=== PATIENT | female | born 1970 | race Caucasian/White ===

== ENCOUNTER 2022-12-13 09:09 | Outpatient (AMB) | payer OTHER, SELFPAY ==
[2022-12-13 09:14] VITALS: BP 118/74; PULSE 79; RESP 16; TEMP 36.6; O2SAT 97; BMI 35.8
--- NOTE | 2022-12-13 09:14 | A.OFFPC_ITS ---
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 Patient was previously seen at [facility]; [place] [facility]-([facility]). Patient reports she had 2 previous episodes of attempting to eat with dentures and choking. Patient reports needing abdominal thrusts to help her breathe again. She reports she went to be seen shortly after for breathing difficulties and was diagnosed with bronchitis. Patient was given steroids which helped a little. Patient went back as she was not getting better and she was given antibiotics. Patient reports this helped and she has not had a reoccurrence for about 3 weeks now. Patient states although she was diagnosed with bronchitis, no imaging was completed and she believes this was closer aligned with aspiration pneumonia. Ceo & Founder Required: No Accompanied by: Self / Same As Patient Allergies No Known Allergies Allergy (Verified 12/13/22 09:36) Medication List - Last Reconciled 12/13/22 by Rafael Anderson CNP No Known Home Meds Tobacco use date assessed: 12/13/22 Dental Screening Dental Screen Date: 12/13/22 Did you have a dental visit in the last 12 months?: Yes Did you have a dental problem in the last 6 months where you did not have access to dental care?: No Was dental information given to patient?: Patient has dentist (Currently undergoing tooth removal and denture molding.) HPI HPI Comments History of Present Illness Details 52-year-old female presents to establish care She was last evaluated by her former PCP and had blood work done 2 years She reports h/o hypothyroidism recent diagnosis of bronchitis. She notes she was on Synthroid which she stopped taking 2 years ago. She notes her last TSH was normal Not currently on prescription medications. No acute symptoms today. She states she has no tooth. Her teeth were removed due to poor dentition. She is awaiting dental procedure for permanent dental implant. She reports h/o MVP. Was followed by Cardiology and had normal echocardiography. No acute symptoms. She requests a referral to Cardiology. She states she has 1 kidney to the right side. 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 Reports history of 1 PPD cigarette smoking for approximately 20 years; She quit smoking 19 years ago. She notes she has never had a colonoscopy She notes she is not followed by [facility] [employer]. Her last pap smear test was 5 years ago: normal She states her last mammogram was 2 years ago: normal She notes she has not received the shingrix vaccines [facility] Medical History (Updated 12/13/22 @ 10:13 by Rafael Anderson CNP) Alcohol abuse Former cigarette smoker H/O fracture of pelvis MVP (mitral valve prolapse) Thyroid condition Surgical History (Updated 12/13/22 @ 09:59 by Rebecca Gardner) Hx of cholecystectomy Hx of kidney donation Hx of tubal ligation Family History Other Adopted Social History [facility]: [facility] Patient Tobacco Use Status: Former Tobacco user Tobacco use type: Cigarette Years Smoked: 19 years e-Cigarette/Vaping Use: Never Used service: No Current occupational status: employed 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 1. Little interest or pleasure in doing things: not at all 2. Feeling down, depressed, or hopeless: not at all 3. Trouble falling or staying asleep, or sleeping too much: not at all 4. Feeling tired or having little energy: not at all 5. Poor appetite or overeating: more than half the days (overeating) 6. Feeling bad about yourself - or that you are a failure or have let yourself or your family down: not at all 7. Trouble concentrating on things, such as reading the newspaper or watching television: not at all 8. Moving or speaking so slowly that other people could have noticed. Or the opposite - being so fidgety or restless that you have been moving around a lot more than usual: not at all 9. Thoughts that you would be better off or of hurting yourself in some way: not at all Total score: 2 Depression Screening Interpretation: Negative 81081 - PHQ-9 Billing: Yes Source: Developed by Drs. Jax Castro, Abdirahman London and colleagues, with an educational delphine from [employer]. Thrive Questionnaire Date Thrive assessed: 12/13/22 I am a: Patient What is your living situation today?: I have a steady place to live Within the past 12 months, did the food you bought not last and you didn't have the money to get more?: Never true Within the past 12 months, did you worry whether your food would run out before you got money to buy more?: Never true Do you have trouble paying for medicines?: No Do you have trouble getting transportation to medical appointments?: No Do you have trouble paying your heating and electricity bill?: No Do you have trouble taking care of your child, family member or friend?: No Do you have trouble with day-to-day activities such as bathing, preparing meals, shopping, managing finances, etc.?: No Are you currently unemployed and looking for a job?: No Are you interested in more education?: No Currently or been in a relationship where the following occur: no concerns reported AUDIT C Alcohol Use Questionnaire (AUDIT-C) 1. How often do you have a drink containing alcohol?: Never 3. How often do you have six or more drinks on one occasion?: Never Total Score: 0 CARLOS-7 AMB Questionnaire CARLOS-7 Date CARLOS - 7 assessed: 12/13/22 Feeling nervous, anxious, or on edge: 0 = Not at all Not being able to stop or control worryin = Not at all Worrying too much about different things: 0 = Not at all Trouble relaxin = Not at all Being so restless that it is hard to sit still: 0 = Not at all Becoming easily annoyed or irritable: 0 = Not at all Feeling afraid as if something awful might happen: 0 = Not at all Total CARLOS-7 score (0-4 normal; 5-9 mild; 10-14 moderate; 15-21 severe): 0 Source: Developed by Drs. Jax Castro, Abdirahman London and colleagues, with an educational delphine from [employer]. CARLOS-7 Assessment Billing CARLOS-7 Assessment Tool: CARLOS-7 Assessment 05112 Review of Systems Const Details: Denies chills, Denies fatigue, Denies fever(s), Denies headache(s) and Denies weakness HEENT Denies change in vision, Denies dizziness, Denies headache(s), Denies hearing loss, Denies nasal congestion, Denies sinus pain, Denies sinus pressure and Denies sore throat Card Denies chest pain, Denies lightheadedness, Denies dyspnea and Denies other (palpitations) Resp Denies cough, Denies dyspnea and Denies wheezing GI Denies abdominal pain, Denies melena, Denies hematochezia, Denies change in bowel habits, Denies dyspepsia and Denies nausea Denies hematuria and Denies dysuria Musc Denies abnormal gait, Denies myalgias, Denies arthralgias, Denies numbness and Denies tingling Skin/Breast Denies rash, Denies unusual bruising and Denies wounds Neuro Denies abnormal gait, Denies dizziness, Denies headache(s), Denies memory loss, Denies numbness, Denies Sensory deficit (Neuro), Denies tingling and Denies weakness Psych Denies anxiety, Denies depression and Denies memory loss Endo Denies cold intolerance, Denies fatigue, Denies heat intolerance, Denies polydipsia and Denies polyuria Chano/Lymph Denies easy bleeding and Denies easy bruising Aller/Immun Denies wheezing Physical exam (Primary Care) Vital Signs: Last Vital Signs Temp 97.8 F 12/13/22 09:14 Pulse 79 12/13/22 09:14 Resp 16 12/13/22 09:14 BP 118/74 12/13/22 09:14 Pulse Ox 97 12/13/22 09:14 Oxygen Delivery Method Room Air 12/13/22 09:14 BMI result Body Mass Index 35.8 Tobacco/Smoking Status: Tobacco use Status Tobacco use date assessed 12/13/22 12/13/22 09:20 Patient Tobacco Use Status Former Tobacco user 12/13/22 09:20 Tobacco use type Cigarette 12/13/22 09:20 e-Cigarette/Vaping Use Never Used 12/13/22 09:20 PHQ-9: PHQ-9 Score PHQ-9: Total score 2 12/13/22 09:38 Depression Screening Interpretation: Negative Thrive Assessment: Date of Thrive Assessment Date Thrive assessed 12/13/22 12/13/22 09:30 Currently or been in a relationship where the following occur: no concerns reported Const Other: General: no acute distress, well developed, alert and awake Nutritional Appearance: well nourished Orientation/consciousness: patient oriented x3 [facility] Head: Yes normocephalic and Yes atraumatic Ears: hearing grossly normal bilaterally and TM's normal bilaterally General nose exam: Normal external nose present and Normal nares present Mouth: Normal oral and palatal mucosa present and moist mucous membranes Teeth and gingiva: Endentulous Throat: Yes oropharynx normal Eyes Pupils: Equal, round and reactive pupils present and Pupil accommodation reflex normal EOM: EOMs intact bilaterally Neck Neck: Yes normal visual inspection, Yes no lymphadenopathy and Yes trachea midline Thyroid: Thyroid normal Carotids: no bruits Lymphatic: no lymphadenopathy noted Chest Chest palpation & inspection: normal inspection of the chest Resp Effort & Inspection: normal respiratory effort Auscultation: clear to auscultation bilaterally Cardio Rate: regular rate Rhythm: regular rhythm Heart sounds: S1 normal heart sound present, S2 normal heart sound present, no gallops, no murmurs and no rubs Bruits: no abdominal aortic bruits and no carotid bruits GI Palpation (GI): No Abdominal aortic bruit present, Soft to palpation, nontender, No hepatosplenomegaly present and No Rebound tenderness present Auscultation: normal bowel sounds General: Yes no CVA tenderness Back/Spine/Pelvis Back: no CVA tenderness Cervical Spine: cervical ROM normal and No Cervical spine tenderness Thoracic/Lumbar Spine: thoraco-lumbar ROM normal, No pain with thoraco-lumbar ROM, No thoracic spinal tenderness and No lumbar spinal tenderness Skin General: warm and dry. Normal skin color. Normal skin turgor Lesions: no lesions Rashes: no rashes Trauma: no lacerations or abrasions Wounds: no wounds Nails: normal Neuro General: patient oriented x3, gait normal and CN's II-XI intact bilaterally Cranial nerves: Yes Equal, round and reactive pupils present Cognition (Neuro): normal cognition Gait exam (Neuro): Normal gait present Motor exam (neuro): 5/5 motor strength present throughout Sensory Exam: No Sensory deficit (Neuro) Deep tendon reflexes (DTR's): Right patellar reflex intensity grade: 2+ and Left patellar reflex intensity grade: 2+ Extrem General: Yes normal to inspection, No edema and No calf tenderness Psych Appearance: grossly normal Affect: normal affect Attitude: cooperative Thought process: Normal thought process present Assessment and Plan Assessment & Plan (1) Normal physical examination, routine: Code(s): Z00.00 - Encounter for general adult medical examination without abnormal findings Plan: No significant physical restrictions or limitations noted Advised to get fasting routine blood work done and schedule a follow-up visit for labs review Return with symptoms or concerns Verbalized understanding and agreed with treatment plan. (2) Hypothyroidism: Code(s): E03.9 - Hypothyroidism, unspecified Plan: She notes she was on Synthroid which she stopped taking 2 years ago. She notes her last TSH was normal. Will check TSH/T4 levels (3) Colon cancer screening: Code(s): Z12.11 - Encounter for screening for malignant neoplasm of colon Plan: She notes she has never had a colonoscopy. GI referral made for colonoscopy. (4) Breast cancer screening by mammogram: Code(s): Z12.31 - Encounter for screening mammogram for malignant neoplasm of breast Plan: She states her last mammogram was 2 years ago: normal. Mammogram ordered. (5) Pap smear for cervical cancer screening: Code(s): Z12.4 - Encounter for screening for malignant neoplasm of cervix Plan: She notes she is not followed by [employer] [employer]. Her last pap smear test was 5 years ago: normal. Referred to PEDIATRIC RADIOLOGIST. (6) Vaccine counseling: Code(s): Z71.85 - Encounter for immunization safety counseling Plan: She notes she has not received the shingrix vaccines. Instructed on importance of vaccinations and encouraged to get the Shingrix vaccines Verbalized understanding and agreed with treatment plan. (7) MVP (mitral valve prolapse): Code(s): I34.1 - Nonrheumatic mitral (valve) prolapse Plan: She reports h/o MVP. Was followed by Cardiology and had normal echocardiography. No acute symptoms. She requests a referral to Cardiology. Referred to Cardiology. (8) Laboratory tests ordered as part of a complete physical exam (CPE): Code(s): Z00.00 - Encounter for general adult medical examination without abnormal findings Plan: Fasting labs ordered as part of a complete physical exam. Advised to fast for at least 10 hours before getting labs drawn. May drink water Verbalized understanding and agreed with treatment plan. Orders: Orders Comprehensive [place]. Panel Fast Today Z00.00 - Encounter for general adult medical examination without abnormal findings Lipid Panel Today Z00.00 - Encounter for general adult medical examination without abnormal findings TSH reflex Free T4 Today Z00.00 - Encounter for general adult medical examination without abnormal findings Complete Blood Count Auto Diff Today Z00.00 - Encounter for general adult medical examination without abnormal findings UA CC w/rflx Micro + Cult Today Z00.00 - Encounter for general adult medical examination without abnormal findings MM screening mammo BI Today Z12.31 - Encounter for screening mammogram for bruno gnant neoplasm of breast Referrals Gastroenterology Referral Z12.11 - Encounter for screening for malignant neoplasm of colon PEDIATRIC RADIOLOGIST Referral Z12.4 - Encounter for screening for malignant neoplasm of cervix Cardiology Referral I34.1 - Nonrheumatic mitral (valve) prolapse Coding Level of Care Code New Pt Prev Care 40-64y(48657) Diagnoses Normal physical examination, routine Z00.00 Hypothyroidism E03.9 Colon cancer screening Z12.11 Breast cancer screening by mammogram Z12.31 Pap smear for cervical cancer screening Z12.4 Vaccine counseling Z71.85 MVP (mitral valve prolapse) I34.1 Laboratory tests ordered as part of a complete physical exam (CPE) Z00.00 Additional Codes CARLOS-7 Assessment Billing - CARLOS-7 Assessment Tool: CARLOS-7 Assessment [id number] ([id number])
== END 2022-12-13 10:05 | disposition home or self-care (01) ==
PROVIDERS: PCP Nurse Practitioner Family; Visit Provider Nurse Practitioner Family
DX: Z00.00 Encounter for general adult medical examination without abnormal findings (principal); E03.9 Hypothyroidism, unspecified; Z12.11 Encounter for screening for malignant neoplasm of colon; Z12.31 Encounter for screening mammogram for malignant neoplasm of breast; Z12.4 Encounter for screening for malignant neoplasm of cervix; Z71.85 Encounter for immunization safety counseling; I34.1 Nonrheumatic mitral (valve) prolapse
CPT/HCPCS: 99386

== ENCOUNTER 2022-12-13 10:05 | Outpatient (REF) | payer OTHER, SELFPAY ==
[2022-12-13 11:12] LABS: MANUAL DIFF FLAG NO
[2022-12-13 11:44] LABS: Basophils Percent Auto 0.8 % (0-2); Eosinophils Absolute Auto 0.2 X10*3/uL (0.0-0.4); Hematocrit 40.8 % (37.0-47.0); Hemoglobin 13.8 g/dl (12.0-16.0); Imm Gran Abs Auto 0.01 X10*3/uL (0.00-0.03); Imm Gran Pct Auto 0.2 % (0.0-0.4); Lymphocytes Absolute Auto 1.6 X10*3/uL (1.2-4.9); Lymphocytes Percent Auto 32.3 % (20-40); Mean Corpuscular HGB Conc 33.8 g/dl (31.0-35.0); Mean Corpuscular Hemoglobin 30.6 pg (27.0-33.0); Mean Corpuscular Volume 90.5 fL (80.0-98.0); Mean Platelet Volume 10.5 fL (9.4-12.3); Monocytes Absolute Auto 0.6 X10*3/uL (0.1-1.2); Monocytes Percent Auto 11.9 % (2-11); Neutrophils Absolute Auto 2.6 x10*3/uL (2.0-8.3); Neutrophils Percent Auto 51.8 % (45-73); Platelet Count 203 X10*3/uL (160-400); Red Blood Count 4.51 X10*6/uL (4.20-5.50); Red Cell Distribution Width 12.7 % (11.0-16.0); White Blood Count 5.1 X10*3/uL (4.8-10.8)
[2022-12-13 13:05] LABS: Alanine Aminotransferase 97 U/L (0-31); Alkaline Phosphatase 61 U/L (39-117); Anion Gap 10 (12-20); Aspartate Amino Transferase 64 U/L (5-31); Bilirubin Total 0.4 mg/dL (0.0-1.0); Blood Urea Nitrogen 11 mg/dL (9-16); Calcium 9.4 mg/dL (8.4-10.2); Carbon Dioxide 26 mmol/L (22-29); Chloride 106 mmol/L (96-108); Cholesterol 193 mg/dL (<200); Estimated Glomerular Filt Rate > 60; Glucose Fasting 85 mg/dL (60-99); HDL Cholesterol 64 mg/dL (>40); LDL Cholesterol Calculated 113 mg/dL (<100); Sodium 138 mmol/L (135-145); Total Protein 7.3 g/dL (6.5-8.0); Triglycerides 81 mg/dL (<150)
[2022-12-13 13:12] LABS: TSH reflex Free T4 4.95 uIU/mL (0.32-4.0)
[2022-12-13 13:39] LABS: Appearance Urine Clear; Color Urine Yellow; Glucose Urine UA Negative (Negative); Leukocyte Esterase Urine Trace (Negative); Nitrite Urine Negative (Negative); UMIC TRIGGER UACC YES; Urine Blood Negative (Negative); Urine Ketones Negative (Negative); Urine Protein Negative (Neg-Trace)
[2022-12-13 13:46] LABS: Bacteria Urine 1+ (None Seen); Hyaline Casts Urine 0-2 /LPF (0-2); WBC Urine 0-5 /HPF (0-5)
[2022-12-13 14:38] LABS: Free T4 (Free Thyroxine) 0.78 ng/dL (0.71-1.85)
== END 2022-12-13 10:06 | disposition home or self-care (01) ==
LOC: HO.WFDLDS 10:05
PROVIDERS: Visit Provider Nurse Practitioner Family
DX: Z00.00 Encounter for general adult medical examination without abnormal findings (principal); Z13.220 Encounter for screening for lipoid disorders; R82.90 Unspecified abnormal findings in urine
CPT/HCPCS: 36415; 80053; 80061; 81001; 81003; 84439; 84443; 85025

== ENCOUNTER → 2023-01-08 08:00 | Outpatient (BNV) | payer OTHER, SELFPAY | PROVIDERS: Visit Provider Radiology Diagnostic Radiology | DX: Z12.31 Encounter for screening mammogram for malignant neoplasm of breast (principal) | CPT/HCPCS: 77063; 77067 ==

== ENCOUNTER 2023-01-08 08:07 | Outpatient (REF) | payer OTHER, SELFPAY | END 2023-01-08 08:08 | disposition home or self-care (01) | LOC: HO.MAMMO 08:07 | PROVIDERS: Visit Provider Nurse Practitioner Family | DX: Z12.31 Encounter for screening mammogram for malignant neoplasm of breast (principal) | CPT/HCPCS: 77063; 77067 ==

== ENCOUNTER 2023-01-23 11:35 | Outpatient (AMB) | payer OTHER, SELFPAY ==
[2023-01-23 11:48] VITALS: BP 124/72; PULSE 76; RESP 12; TEMP 36.3; O2SAT 98; BMI 36.0
--- NOTE | 2023-01-23 11:48 | MHC.PC.OV ---
Vital Signs 01/23/23 11:48 Height 5 ft 8.25 in Weight 238 lb 6 oz BMI 36.0 BP 124/72 Blood Pressure Location Rt brachial Position Sitting Respiration 12 Pulse 76 Pulse Source Pulse Oximeter Temp 97.4 F Temp Source Temporal Artery Scan Pulse Oximetry (%) 98 Oxygen Delivery Method Room Air Intake Visit Reasons: 1 mos labs review Veterinary Assistant Technician Required: No Accompanied by: Self / Same As Patient Allergies No Known Allergies Allergy (Verified 01/23/23 11:52) Tobacco use date assessed: 12/13/22 Dental Screening Dental Screen Date: 01/23/23 Did you have a dental visit in the last 12 months?: Yes Did you have a dental problem in the last 6 months where you did not have access to dental care?: No Was dental information given to patient?: Patient has dentist HPI HPI Comments History of Present Illness Details 52-year-old female presents for review of recent blood work. She established care on 12/13/2022. She reported history of hypothyroidism, was on Synthroid which she has not taking within the past 2 years, and her last TSH was reported as normal. She denies acute symptoms at this time. She had a mammogram done on 01/08/2023 at [facility] but has not been read. 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 Jax Castro, Yelena Estrada, Abdirahman Junior and colleagues, with an educational delphine from [employer]. Review of Systems Const Details: Const Denies chills, Denies fatigue, Denies fever(s), Denies headache(s) and Denies weakness ENT Denies dizziness and Denies headache(s) Card Denies chest pain, Denies lightheadedness, Denies dyspnea and Denies other (Palpitations) Resp Denies cough, Denies dyspnea, Denies wheezing and Denies other ( shortness of breath) GI Denies abdominal pain, Denies melena, Denies hematochezia, Denies change in bowel habits, Denies dyspepsia and Denies nausea Denies hematuria and Denies dysuria Musc Denies abnormal gait, Denies myalgias, Denies arthralgias, Denies numbness and Denies tingling Skin/Breast Denies rash, Denies unusual bruising and Denies wounds Neuro Denies abnormal gait, Denies dizziness, Denies headache(s), Denies memory loss, Denies numbness, Denies Sensory deficit (Neuro), Denies tingling and Denies weakness Psych Denies anxiety, Denies depression, Denies memory loss Endo Denies cold intolerance, Denies fatigue, Denies heat intolerance, Denies polydipsia and Denies polyuria Aller/Immun Denies wheezing Physical exam (Primary Care) Vital Signs: Last Vital Signs Temp 97.4 F 01/23/23 11:48 Pulse 76 01/23/23 11:48 Resp 12 01/23/23 11:48 BP 124/72 01/23/23 11:48 Pulse Ox 98 01/23/23 11:48 Oxygen Delivery Method Room Air 01/23/23 11:48 BMI result Body Mass Index 36.0 Tobacco/Smoking Status: Tobacco use Status Tobacco use date assessed 12/13/22 01/23/23 11:56 Patient Tobacco Use Status Former Tobacco user 01/23/23 11:56 Tobacco use type Cigarette 01/23/23 11:56 e-Cigarette/Vaping Use Never Used 01/23/23 11:56 Thrive Assessment: Date of Thrive Assessment Date Thrive assessed 12/13/22 01/23/23 11:56 Const Other: General: no acute distress and well developed Nutritional Appearance: well nourished Orientation/consciousness: patient oriented x3 HENMT Head: Yes normocephalic and Yes atraumatic Eyes General: appearance normal, both eyes and all related structures Pupils: Equal, round and reactive pupils present EOM: EOMs intact bilaterally Resp Effort & Inspection: normal respiratory effort Auscultation: clear to auscultation bilaterally Cardio Rate: regular rate Rhythm: regular rhythm Heart sounds: S1 normal heart sound present, S2 normal heart sound present, no gallops, no murmurs and no rubs GI Palpation (GI): No Abdominal aortic bruit present, Soft to palpation, nontender, No hepatosplenomegaly present and No Rebound tenderness present Auscultation: normal bowel sounds General: Yes no CVA tenderness Back/Spine/Pelvis Back: no CVA tenderness Cervical Spine: cervical ROM normal and No Cervical spine tenderness Thoracic/Lumbar Spine: thoraco-lumbar ROM normal, No pain with thoraco-lumbar ROM, No thoracic spinal tenderness and No lumbar spinal tenderness Extrem General: Yes normal to inspection, No edema and No calf tenderness Skin General: warm and dry. Normal skin color. Normal skin turgor Lesions: no lesions Rashes: no rashes Trauma: no lacerations or abrasions Wounds: no wounds Nails: normal Neuro General: patient oriented x3, gait normal and no focal neuro deficit Cranial nerves: Yes Equal, round and reactive pupils present Cognition (Neuro): normal cognition Gait exam (Neuro): Normal gait present Sensory Exam: No Sensory deficit (Neuro) Psych Appearance: grossly normal Affect: normal affect Attitude: cooperative Thought process: Normal thought process present Assessment and Plan Assessment & Plan (1) Hypothyroidism: Code(s): E03.9 - Hypothyroidism, unspecified Plan: She reports history of hypothyroidism, was prescribed Synthroid which he has not taken in the past 2 years Recent TSH is slightly elevated, 4.95, free T4 is normal Levothyroxine 50 mcg daily ordered. Take with a full glass of water, in an empty stomach, 30 minute to 1 hour before order medication or food Will repeat TSH to T4 in 6 weeks. Advised to get blood work done before next visit Follow-up in 6 weeks or return sooner with symptoms or concerns Verbalized understanding and agreed with treatment plan. (2) Transaminitis: Code(s): R74.01 - Elevation of levels of liver transaminase levels Plan: Recent lab results reviewed with the patient AST and ALT a significantly elevated, 64 and 97 respectively Likely due to hepatic steatosis She reports h/o excessive alcohol consumption but stopped drinking 20 years ago Will repeat liver panel. Advised to fast for 10-12 hours and for get blood work done before next visit. Would order liver ultrasound if levels are still elevated Follow-up in 6 weeks or return sooner with symptoms or concerns Verbalized understanding and agreed with treatment plan. (3) Elevated LDL cholesterol level: Code(s): E78.00 - Pure hypercholesterolemia, unspecified Plan: LDL level is slightly elevated, 113 Advised to limit foods high in saturated fat and avoid foods high trans fat Routine exercise encouraged Verbalized understanding and agreed with treatment plan. Orders: Orders Liver Panel Today R74.01 - Elevation of levels of liver transaminase levels TSH reflex Free T4 6 Weeks E03.9 - Hypothyroidism, unspecified Medications: New levothyroxine 50 mcg PO DAILY 30 tabs 3RF 30 days Coding Level of Care Code Est Pt Level 3 (42219) Diagnoses Hypothyroidism E03.9 Transaminitis R74.01 Elevated LDL cholesterol level E78.00
== END 2023-01-23 12:33 | disposition home or self-care (01) ==
PROVIDERS: PCP Nurse Practitioner Family; Visit Provider Nurse Practitioner Family
DX: E03.9 Hypothyroidism, unspecified (principal); R74.01 Elevation of levels of liver transaminase levels; E78.00 Pure hypercholesterolemia, unspecified
CPT/HCPCS: 99214

== ENCOUNTER 2023-02-21 07:35 | Outpatient (AMB) | payer OTHER, SELFPAY ==
--- NOTE | 2023-02-21 07:46 | MHC.OFFVIS ---
Intake Vital Signs 02/21/23 07:47 Height 5 ft 8 in Weight 238 lb BMI 36.2 BP 110/73 Blood Pressure Location Lt brachial Position Sitting Pulse 84 Intake Visit Reasons: Colonoscopy Screening Intake Note: Patient new consult for 1st pre Colonoscopy screening. Patient denies any GI issues. Precise Winder Required: No Accompanied by: Self / Same As Patient Allergies No Known Allergies Allergy (Verified 02/21/23 07:46) HPI HPI Comments History of Present Illness Details A 52 y/o female - index screening colonoscopy- Bowels normal Adopted - fam hx unknown Appetite is good No N/V/D- abdominal pain PFSH Medical History H/O fracture of pelvis Thyroid condition MVP (mitral valve prolapse) Former cigarette smoker Alcohol abuse Surgical History H/O tooth extraction Hx of tubal ligation Hx of cholecystectomy Hx of kidney donation Family History Other Adopted Social History Housing: Condominium Patient Tobacco Use Status: Former Tobacco user Tobacco use type: Cigarette Years Smoked: 19 years e-Cigarette/Vaping Use: Never Used service: No Current occupational status: employed 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 Cognitive needs: No Hearing needs: No Vision needs: Yes (See's eye doctor) Review of Systems Const All systems reviewed & are unremarkable except as noted in HPI and below Card Denies chest pain and Denies dyspnea Resp Denies dyspnea Denies abnormal menses Physical Exam Vital Signs: Last Vital Signs Pulse 84 02/21/23 07:47 BP 110/73 02/21/23 07:47 BMI result Body Mass Index 36.2 Const General: cooperative, healthy appearing, comfortable, no acute distress and well developed Orientation/consciousness: patient oriented x3 Limitations: no limitations Eyes Sclerae: sclerae normal Resp Effort & Inspection: normal respiratory effort and able to speak in complete sentences Auscultation: clear to auscultation bilaterally, no rales, no rhonchi and no wheezes Cardio Rate: regular rate Rhythm: regular rhythm Heart sounds: S1 normal heart sound present and S2 normal heart sound present GI Palpation (GI): Soft to palpation and nontender Auscultation: normal bowel sounds Skin General skin exam: no rashes or lesions noted Neuro General: patient oriented x3 Extrem General: Yes full ROM Psych Appearance: grossly normal and well kempt Mental Status: mental status grossly normal Speech and movement: Normal speech and movement present Affect: normal affect Attitude: cooperative Thought process: Normal thought process present Thought content: Normal thought content present Assessment & Plan Assessment & Plan (1) Colon cancer screening: Comment: Pleasant 52 y/o F- no GI complaints Adopted- unknown hx Disc- procedure- rare risks, prep Code(s): Z12.11 - Encounter for screening for malignant neoplasm of colon Plan: Index screening colon Orders: Orders Colonoscopy - GI Use Only Today Z12.11 - Encounter for screening for malignant neoplasm of colon Medications: New bisacodyl (Dulcolax (bisacodyl)) Day before procedure, prep day Take 4 tablets by mouth upon awakening followed by large glass of water 20 mg (4 x 5 mg) PO ONCE 1 day 4 tabs 0RF colonoscopy prep Z12.11 - Encounter for screening for malignant neoplasm of colon polyethylene glycol 3350 (Miralax) Take as directed by mouth the day before your procedure. 238 grams PO ONCE 1 day 238 grams 0RF laxative effect Patient Instructions: Index screening colon MG prep Coding Level of Care Code New Pt Level 3 (03064) Diagnoses Colon cancer screening Z12.11 Time Spent (min) 30
[2023-02-21 07:47] VITALS: BP 110/73; PULSE 84; BMI 36.2
== END 2023-02-21 09:23 | disposition home or self-care (01) ==
PROVIDERS: PCP Nurse Practitioner Family; Visit Provider Physician Assistant
DX: Z01.818 Encounter for other preprocedural examination (principal); Z12.11 Encounter for screening for malignant neoplasm of colon
CPT/HCPCS: S0285

== ENCOUNTER → 2023-02-21 07:35 | Outpatient (BNVA) | payer OTHER, SELFPAY | PROVIDERS: PCP Nurse Practitioner Family; Visit Provider Physician Assistant ==

== ENCOUNTER 2023-02-26 07:38 | Outpatient (REF) | payer OTHER, SELFPAY ==
[2023-02-26 11:56] LABS: Alanine Aminotransferase 92 U/L (0-31); Alkaline Phosphatase 68 U/L (39-117); Aspartate Amino Transferase 54 U/L (5-31); Bilirubin Direct 0.2 mg/dL (0.0-0.5); Bilirubin Total 0.4 mg/dL (0.0-1.0); Total Protein 7.3 g/dL (6.5-8.0)
[2023-02-26 12:00] LABS: TSH reflex Free T4 5.92 uIU/mL (0.32-4.0)
== END 2023-02-26 07:39 | disposition home or self-care (01) ==
LOC: HO.HMGCLDS 07:38
PROVIDERS: PCP Nurse Practitioner Family; Visit Provider Nurse Practitioner Family
DX: E03.9 Hypothyroidism, unspecified (principal); R74.01 Elevation of levels of liver transaminase levels
CPT/HCPCS: 36415; 80076; 84439; 84443

== ENCOUNTER 2023-03-06 16:09 | Outpatient (AMB) | payer OTHER, SELFPAY ==
[2023-03-06 16:15] VITALS: BP 120/66; PULSE 71; RESP 12; O2SAT 97; BMI 36.9
--- NOTE | 2023-03-06 16:15 | MHC.PC.OV ---
Vital Signs 03/06/23 16:15 Height 5 ft 8 in Weight 243 lb BMI 36.9 BP 120/66 Blood Pressure Location Lt brachial Position Sitting Respiration 12 Pulse 71 Pulse Source Pulse Oximeter Pulse Oximetry (%) 97 Oxygen Delivery Method Room Air Intake Visit Reasons: f/u transaminitis, hypothyroidism Intake Note: Patient reports she is here to discuss lab results. Patient reports she fell and has a large bruise on her left knee and would like to make sure it is just a normal bruise in its healing stages. Patient reports her spouse is concerned because of the placement of the bruise and the hardness of the area. Web Development Director Required: No Accompanied by: Self / Same As Patient Allergies No Known Allergies Allergy (Verified 03/06/23 16:32) Medication List - Last Reconciled 03/06/23 by Rafael Anderson CNP bisacodyl (Dulcolax (bisacodyl)) 20 mg (4 x 5 mg) PO ONCE 1 day levothyroxine 75 mcg PO DAILY 30 days polyethylene glycol 3350 (Miralax) 238 grams PO ONCE 1 day Tobacco use date assessed: 12/13/22 HPI HPI Comments History of Present Illness Details 52-year-old female presents for hypothyroidism and transaminitis follow-up Previous AST and ALT were elevated; TSH was slightly elevated, free T4 was normal. Repeat AST and ALT ordered. Levothyroxine 50 mcg was prescribed; instructed on correct use of the medication. She admits to taking her medications as prescribed. She reports swelling, pain, and bruises to her both knees, left worst than right. She states that she tripped on gas pump and fall on her knees a week ago. She has been taking extra strength Tylenol nightly. 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 Jax Castro, Yelena Estrada, Abdirahman Junior and colleagues, with an educational delphine from [employer]. Review of Systems Const Details: Const Denies chills, Denies fatigue, Denies fever(s), Denies headache(s) and Denies weakness ENT Denies dizziness and Denies headache(s) Card Denies chest pain, Denies lightheadedness, Denies dyspnea and Denies other (Palpitations) Resp Denies cough, Denies dyspnea, Denies wheezing and Denies other ( shortness of breath) GI Denies abdominal pain, Denies melena, Denies hematochezia, Denies change in bowel habits, Denies dyspepsia and Denies nausea Denies hematuria and Denies dysuria Musc Reports as per HPI Skin/Breast Reports as per HPI Neuro Denies abnormal gait, Denies dizziness, Denies headache(s), Denies memory loss, Denies numbness, Denies Sensory deficit (Neuro), Denies tingling and Denies weakness Psych Denies anxiety, Denies depression, Denies memory loss Endo Denies cold intolerance, Denies fatigue, Denies heat intolerance, Denies polydipsia and Denies polyuria Aller/Immun Denies wheezing Physical exam (Primary Care) Vital Signs: Last Vital Signs Pulse 71 03/06/23 16:15 Resp 12 03/06/23 16:15 BP 120/66 03/06/23 16:15 Pulse Ox 97 03/06/23 16:15 Oxygen Delivery Method Room Air 03/06/23 16:15 BMI result Body Mass Index 36.9 Tobacco/Smoking Status: Tobacco use Status Tobacco use date assessed 12/13/22 03/06/23 16:21 Patient Tobacco Use Status Former Tobacco user 03/06/23 16:21 Tobacco use type Cigarette 03/06/23 16:21 e-Cigarette/Vaping Use Never Used 03/06/23 16:21 Thrive Assessment: Date of Thrive Assessment Date Thrive assessed 12/13/22 03/06/23 16:21 Const Other: General: no acute distress and well developed Nutritional Appearance: well nourished Orientation/consciousness: patient oriented x3 [facility] Head: Yes normocephalic and Yes atraumatic Eyes General: appearance normal, both eyes and all related structures Pupils: Equal, round and reactive pupils present EOM: EOMs intact bilaterally Resp Effort & Inspection: normal respiratory effort Auscultation: clear to auscultation bilaterally Cardio Rate: regular rate Rhythm: regular rhythm Heart sounds: S1 normal heart sound present, S2 normal heart sound present, no gallops, no murmurs and no rubs GI Palpation (GI): No Abdominal aortic bruit present, Soft to palpation, nontender, No hepatosplenomegaly present and No Rebound tenderness present Auscultation: normal bowel sounds General: Yes no CVA tenderness Back/Spine/Pelvis Back: no CVA tenderness Cervical Spine: cervical ROM normal and No Cervical spine tenderness Thoracic/Lumbar Spine: thoraco-lumbar ROM normal, No pain with thoraco-lumbar ROM, No thoracic spinal tenderness and No lumbar spinal tenderness Extrem General: Yes normal to inspection, No edema and No calf tenderness Small bruise and swelling to the right knee. Left knee with significant hematoma and swelling. Skin is intact. No obvious deformity Skin General: warm and dry. Normal skin color. Normal skin turgor Neuro General: patient oriented x3, gait normal and no focal neuro deficit Cranial nerves: Yes Equal, round and reactive pupils present Cognition (Neuro): normal cognition Gait exam (Neuro): Normal gait present Sensory Exam: No Sensory deficit (Neuro) Psych Appearance: grossly normal Affect: normal affect Attitude: cooperative Thought process: Normal thought process present Assessment and Plan Assessment & Plan (1) Transaminitis: Code(s): R74.01 - Elevation of levels of liver transaminase levels Plan: Repeat AST and ALT elevated, 54 and 92 respectively Likely hepatic steatosis Liver ultrasound ordered. Will review results and make changes as needed Verbalized understanding and agreed with treatment plan. (2) Hypothyroidism: Code(s): E03.9 - Hypothyroidism, unspecified Plan: Recent TSH is elevated, 5.92, free T4 is normal Levothyroxine increased to 75 mcg daily. Take as prescribed with a full glass of water in an empty stomach 30 minutes on or before taking other medication or meals Advised to get TSH blood work done before next visit Follow-up in 6 weeks or return sooner with symptoms or concerns Verbalized understanding and agreed with treatment plan (3) Bilateral knee pain: Code(s): M25.561 - Pain in right knee; M25.562 - Pain in left knee Plan: Reports swelling, pain, and bruises to her both knees, left worst than right, for the past 1 week Small bruise and swelling to the right knee. Left knee with significant hematoma and swelling. Skin is intact. No obvious deformity Advised to rest, ice, and elevate the extremities May take ibuprofen for pain or discomfort Follow-up with worsening or new symptoms Verbalized understanding and agreed with treatment plan. Orders: Orders US abdomen limited Today R74.01 - Elevation of levels of liver transaminase levels Thyroid Stimulating Hormone 6 Weeks E03.9 - Hypothyroidism, unspecified Medications: New levothyroxine 75 mcg PO DAILY 30 days 30 tabs 3RF Discontinued levothyroxine Discontinued Reason: Change Referral Type 50 mcg PO DAILY 30 days 30 tabs 3RF Coding Level of Care Code Est Pt Level 4 (36511) Diagnoses Transaminitis R74.01 Hypothyroidism E03.9 Bilateral knee pain M25.561; M25.562
== END 2023-03-06 16:44 | disposition home or self-care (01) ==
PROVIDERS: PCP Nurse Practitioner Family; Visit Provider Nurse Practitioner Family
DX: R74.01 Elevation of levels of liver transaminase levels (principal); E03.9 Hypothyroidism, unspecified; M25.561 Pain in right knee; M25.562 Pain in left knee
CPT/HCPCS: 99214

== ENCOUNTER 2023-03-07 07:37 | Outpatient (AMB) | payer OTHER, SELFPAY ==
--- NOTE | 2023-03-07 07:39 | MHC.OFFVIS ---
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 No complaints. Last Pap/HPV was more than 5 years ago Last Mammogram was BI-RADS 1 in 01/12 The patient is in the process of scheduling her screening Colonoscopy with GI PFSH Medical History H/O fracture of pelvis Thyroid condition MVP (mitral valve prolapse) Former cigarette smoker Alcohol abuse Surgical History H/O tooth extraction Hx of tubal ligation Hx of cholecystectomy Hx of kidney donation Family History Other Adopted Social History Household Members: Spouse Housing: Condominium Patient Tobacco Use Status: Former Tobacco user Tobacco use type: Cigarette Years Smoked: 19 years e-Cigarette/Vaping Use: Never Used service: No Current occupational status: employed 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 Sexual orientation: Straight/Heterosexual Gender identity: Female Cognitive needs: No Hearing needs: No Vision needs: Yes (See's eye doctor) Female Reproductive History Menstrual Date of last menstrual period: 12/14/22 Menopause type: natural Total pregnancies: 1 Full term: 1 Number of Living Children: 1 Date of Mammogram: 01/08/23 Review of Systems Const All systems reviewed & are unremarkable except as noted in HPI and below Card Reports as per HPI Resp Reports as per HPI GI Reports as per HPI and Reports no additional complaints Reports as per HPI Physical Exam Vital Signs: BMI result Body Mass Index 36.2 Const General: cooperative, healthy appearing and comfortable Chest Chest palpation & inspection: normal inspection of the chest and normal palpation of entire chest wall Breast/axilla inspection: normal inspection of the breasts and normal inspection of the axillae Breast/axilla palpation: normal palpation of the breasts, normal palpation of the axillae and no axillary lymphadenopathy Resp Effort & Inspection: normal respiratory effort Auscultation: clear to auscultation bilaterally Percussion: percussion normal Cardio Palpation: normal PMI Rate: regular rate Rhythm: regular rhythm Heart sounds: no murmurs and no rubs Peripheral pulses: Peripheral pulses 2+ throughout GI Inspection: Yes normal to inspection Palpation (GI): Soft to palpation, nontender, no guarding, not rigid and No hepatosplenomegaly present Percussion: Yes normal to percussion Auscultation: normal bowel sounds Rectal Exam - Female: deferred General: Yes bladder normal to palpation External Female Exam: No lesion Speculum Exam - Vagina: normal appearance of the vagina, normal palpation, normal vaginal discharge and not erythematous Speculum Exam - Cervix: normal appearance of the cervix and normal palpation Bimanual exam- vagina & uterus: normal bimanual exam, normal palpation, uterine size normal, bladder normal to palpation, consistency normal and normal palpation Bimanual Exam- Adnexa, other: normal adnexae, no masses and no tenderness Assessment & Plan Assessment & Plan (1) Well woman exam: Code(s): Z01.419 - Encounter for gynecological examination (general) (routine) without abnormal findings Plan: Co testing done. Counseled the patient about the recommended dietary allowance of 1200 mg of Calcium & 600 IU of vitamin D. Instructions given the patient to schedule next screen Mammogram in 01/13 The patient is in the process of scheduling with GI her screening colonoscopy . The patient was instructed to perform monthly self-breast exams and schedule annual exam in a year. All questions answered and the patient verbalized understanding. Orders: Orders Pap Smear Today Z01.419 - Encounter for gynecological examination (general) (routine) without abnormal findings Coding Level of Care Code New Pt Prev Care 40-64y(96310) Diagnoses Well woman exam Z01.419
[2023-03-07 07:40] VITALS: BP 110/72; BMI 36.2
== END 2023-03-07 07:54 | disposition home or self-care (01) ==
LOC: HO.HWS 07:37
PROVIDERS: PCP Nurse Practitioner Family; Visit Provider Obstetrics & Gynecology
DX: Z01.419 Encounter for gynecological examination (general) (routine) without abnormal findings (principal)
CPT/HCPCS: 99386

== ENCOUNTER 2023-03-07 07:37 | Outpatient (REF) | payer OTHER, SELFPAY ==
[2023-03-11 23:09] LABS: HPV mRNA E6/E7 rflx Not Detected (Not Detected)
== END 2023-03-07 07:38 | disposition home or self-care (01) ==
LOC: HO.LNP 07:37
PROVIDERS: PCP Nurse Practitioner Family; Visit Provider Obstetrics & Gynecology
DX: Z01.419 Encounter for gynecological examination (general) (routine) without abnormal findings (principal); Z11.51 Encounter for screening for human papillomavirus (HPV)
CPT/HCPCS: 87624; 88142

== ENCOUNTER 2023-03-19 08:38 | Outpatient (REF) | payer OTHER, SELFPAY ==
--- NOTE | ~2023-03-19 | US_ITS ---
EXAMINATION: US ABDOMEN LIMITED CLINICAL INFORMATION: Elevation of liver transaminase levels. COMPARISON: None available. TECHNIQUE: Real-time imaging of the right upper quadrant abdominal viscera. FINDINGS: PANCREAS: Normal. LIVER: The liver is normal in size. The liver contour is normal. Increased hepatic echogenicity suggesting hepatic steatosis. No focal hepatic lesion. There is no intrahepatic biliary duct dilatation seen. GALLBLADDER: Surgically absent. COMMON BILE DUCT: Normal in caliber measuring 0.75 cm in diameter. RIGHT KIDNEY: Normal. No hydronephrosis. No renal calculi or focal parenchymal lesions. The kidney measures 11.8 cm in maximum dimension. FREE FLUID: None. US/US abdomen limited IMPRESSION: Increased hepatic echogenicity suggesting hepatic steatosis.
== END 2023-03-19 08:39 | disposition home or self-care (01) ==
LOC: HO.HMGCX 08:38
PROVIDERS: PCP Nurse Practitioner Family; Visit Provider Nurse Practitioner Family
DX: R74.01 Elevation of levels of liver transaminase levels (principal)
CPT/HCPCS: 76705

== ENCOUNTER 2023-04-08 13:33 | Outpatient (AMB) | payer OTHER, SELFPAY ==
[2023-04-08 13:38] VITALS: BP 124/78; PULSE 84; BMI 36.2
--- NOTE | 2023-04-08 13:38 | MHC.OFFVIS ---
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 She is diagnosed with mitral valve prolapse about 30 years ago when she was and was noted to have murmur. Since then she had another echocardiogram many years ago in [place] and was told that she had mitral valve prolapse. She has been taking SBE prophylaxis ever since then. She also has mild hyperlipidemia. She also has issues with her weight. She remains fairly active and a day-to-day life but does not exercise on a regular basis. She denies any exertional symptoms of chest pain or shortness of breath. Denies any prolonged palpitation irregular heartbeat. She says occasionally about once a month she would notice he couple like sensation in her chest I would last for minute after she has had soda. However she does drink soda on a daily basis and does not get these palpitations on a regular basis. The symptoms are not bothersome to her. Denies any lightheadedness, syncope. 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 Sexual orientation: Straight/Heterosexual Gender identity: Female Cognitive needs: No Hearing needs: No Vision needs: Yes (See's eye doctor) Review of Systems Const Denies chills, Denies daytime sleepiness, Denies fatigue, Denies fever(s), Denies frequent falls, Denies poor appetite, Denies snoring, Denies stops breathing during sleep, Denies weakness, Denies weight gain and Denies weight loss Eyes Denies loss of vision ENT Denies dizziness and Denies hearing loss Card Denies chest pain, Denies claudication, Denies leg edema, Denies lightheadedness, Denies palpitations, Denies dyspnea, Denies dyspnea on exertion and Denies orthopnea Resp Denies cough, Denies excessive phlegm production, Denies dyspnea, Denies dyspnea on exertion, Denies snoring and Denies wheezing GI Denies abdominal pain, Denies hematochezia, Denies change in bowel habits, Denies nausea and Denies vomiting Denies urinary frequency and Denies dysuria Musc Denies arthralgias, Denies muscle weakness, Denies numbness and Denies other (frequent falls) Skin/Breast Denies nail changes and Denies rash Neuro Denies Abnormal speech present, Denies dizziness, Denies frequent falls, Denies loss of vision, Denies memory loss, Denies numbness and Denies weakness Psych Denies depression and Denies memory loss Endo Denies fatigue and Denies palpitations Chano/Lymph Reports easy bruising and Reports other (anemia) Aller/Immun Denies wheezing Physical Exam Vital Signs: Last Vital Signs Pulse 84 04/08/23 13:38 BP 124/78 04/08/23 13:38 BMI result Body Mass Index 36.2 Const General: cooperative, comfortable, no acute distress, alert, awake, Physically active and well groomed Nutritional Appearance: obese Orientation/consciousness: patient oriented x3 Limitations: no limitations HEENT Head: Yes normocephalic and Yes atraumatic Neck Neck: Yes trachea midline, Yes supple and Yes no JVD Resp Effort & Inspection: normal respiratory effort Auscultation: clear to auscultation bilaterally Cardio Jugular venous distension: no JVD Palpation: normal PMI Rate: regular rate Rhythm: regular rhythm Heart sounds: S1 normal heart sound present, S2 normal heart sound present, no click, no gallops, no murmurs and no rubs GI Auscultation: normal bowel sounds Skin General skin exam: no rashes or lesions noted Neuro General: patient oriented x3 and no focal motor deficits Speech: No Abnormal speech present Extrem General: Yes no clubbing, cyanosis or edema Office Procedures EKG Details: EKG shows normal sinus rhythm with low-voltage QRS most likely due to body habitus with nonspecific T-wave changes [id number], Complete Assessment & Plan Assessment & Plan (1) MVP (mitral valve prolapse): Code(s): I34.1 - Nonrheumatic mitral (valve) prolapse Plan: Patient with prior diagnosis of mitral valve prolapse failed will try to obtain old echocardiogram if possible from [place]. However since she was diagnosed initially the criteria by [place] Society of echocardiogram if you have changed significantly for diagnosis of mitral valve prolapse. Will repeat echocardiogram to see if she clearly has mitral valve prolapse and associated mitral regurgitation that may require alternative therapy. I do not hear any clear clicks and/or regurgitation murmur today on clinical exam. Definitely by ACC/aha guidelines she does not require SBE prophylaxis. This was discussed with her. She understands and agrees. (2) Elevated LDL cholesterol level: Code(s): E78.00 - Pure hypercholesterolemia, unspecified Plan: Patient has mildly elevated LDL cholesterol level. We discussed about further risk stratification with coronary calcium score. We discuss the process of coronary calcium score and if present associated risk for coronary or vascular events. At current level she does not require LDL treatment unless she has elevated calcium score. This was discussed with her. Also discussed with her about weight management. She does have mildly elevated LFTs which could be related to fatty liver disease and we discussed various strategies. She is encouraged and will try to incorporate regular physical activity. Will follow up in the clinic in 1 year's time, sooner p.r.n.. Thank you for allowing me to partake in the care Orders: Orders CA echo transthoracic complete Today I34.1 - Nonrheumatic mitral (valve) prolapse CT Coronary Calcium Score 1 Month E78.00 - Pure hypercholesterolemia, unspecified Coding Level of Care Code New Pt Level 4 (99453) Diagnoses MVP (mitral valve prolapse) I34.1 Elevated LDL cholesterol level E78.00 CPT Codes EKG - CPT: 33858-[id number], Complete ([id number])
== END 2023-04-08 14:08 | disposition home or self-care (01) ==
PROVIDERS: PCP Nurse Practitioner Family; Visit Provider Internal Medicine Cardiovascular Disease
DX: I34.1 Nonrheumatic mitral (valve) prolapse (principal); E78.00 Pure hypercholesterolemia, unspecified
CPT/HCPCS: 93010; 99204

== ENCOUNTER → 2023-04-08 13:33 | Outpatient (BNVA) | payer OTHER, SELFPAY | PROVIDERS: PCP Nurse Practitioner Family; Visit Provider Internal Medicine Cardiovascular Disease | DX: I34.1 Nonrheumatic mitral (valve) prolapse (principal); E78.00 Pure hypercholesterolemia, unspecified | CPT/HCPCS: 93005 ==

== ENCOUNTER → 2023-05-01 14:46 | Outpatient (REF) | payer OTHER, SELFPAY ==
--- NOTE | 2023-05-01 14:51 | CA_ITS ---
Transthoracic Echocardiogram Patient (Last, First, Middle): Maribel Ramirez L Gender: Female Date of : 1970 Age: 52 Procedure Date: 05/01/2023 Procedure Type: Transthoracic Echocardiogram Location: OP Height: 172.72 cm Weight: 108.86 kg BSA: 2.21 m2 Heart Rate: bpm BP: 120 / 76 mmHg Tennis Professional: TO Referring MD: Can Monahan MD Bead Picker: Can Monahan MD Symptoms: I34.1 - Nonrheumatic mitral (valve) prolapse Study Quality: Technically Difficult/contrast ECG Rhythm: Sinus Conclusions: - 1. Normal LV ejection fraction 60 65% with impaired relaxation filling pattern 2. Normal cardiac valvular Doppler 3. No gross pericardial effusion Findings Procedure Information Contrast agent, definity, is being given per protocol without apparent complications. Left Ventricle Normal left ventricular size, thickness, and systolic function. The visually estimated ejection fraction is between 60-65%. Spectral Doppler is indicative of an impaired relaxation filling pattern. E/E prime ratio is <8, consistent with normal filling pressures. Right Ventricle Normal right ventricular cavity size. Atria The left atrium is normal in size. Interatrial shunt cannot be excluded. The right atrium was not well visualized. Aortic Valve The aortic valve was not well visualized. There is no aortic valve stenosis. There is no aortic valve regurgitation. Mitral Valve Likely normal mitral valve structure and function. There is no mitral valve regurgitation. There is no mitral valve stenosis. no clear evidence of mitral valve prolapse Pulmonic Valve The pulmonic valve was not well visualized. Tricuspid Valve The tricuspid valve was not well visualized. Tricuspid regurgitation envelope is inadequate for calculation of right ventricular systolic pressure. Normal right atrial pressure. Great Vessels All visible segments of the aorta are normal in size. The pulmonary artery was not well visualized. Venous The inferior vena cava is normal in size and collapses greater than 50% with inspiration. Pericardium/Pleural The pericardium was not well visualized. Prior Study Comparison No significant change compared to prior study dated: 10/25/2018. Measurements 2D Linear Measurements IVSd: 0.96 0.6-0.9/0.6-1.0 cm LVIDd: 4.05 3.9-5.3/4.2-5.9 cm LVIDd Index: 1.83 2.4-3.2/2.2-3.1 cm/m2 LVIDs: 2.83 2.0-3.6 cm LVPWd: 0.85 0.7-1.1 cm LV Mass: 140.08 67-162/88-224 g LV Mass Index: 63.39 43-95/49-115 g/m2 LVOT Diam: 2.00 3.0+(-)1.3 cm 2D Systolic Function EF 4C: 59.00 >55% EF 2C: 66.40 >55% EF BiP: 63.50 >55% Mitral Valve MV Pk E: 0.58 MV PK A: 0.53 MV Decel Time: 227.00 E/A: 1.10 E'Lateral: 8.27 E'Medial: 5.98 E/E' Med: 9.70 E/E' Lat: 7.00 PHT: 66.00 MVA PHT: 3.33 [place]el [place]: 2.55 Aortic Valve AoV Pk Juan: 1.16 AoV Mn Juan: 0.79 AoV VTI: 0.25 AoV Pk Grad: 5.00 Aov Mn Grad: 3.00 MAX Cont.VTI: 2.31 LVOT LVOT Pk Juan: 0.89 LVOT Mn Juan: 0.60 LVOT VTI: 0.19 LVOT Pk Grad: 3.00 LVOT Mn Grad: 2.00 LVOT Diam: 2.00 LVOT Area: 3.14 Diastolic Function MV Pk E: 0.58 MV Pk A: 0.53 E/A: 1.10 E'Medial: 5.98 E/E' Med: 9.70 E' Laterial: 8.27 E/E' Lat: 7.00 Right Ventricle TAPSE (mm): 18.50 TVS' Juan: 10.70 Tricuspid Valve RA Press: 3.00 Great Vessels Aorta Sinus of Valsalva: 3.11 2.0-3.[address] [place]: 2.58 1.7-3.4 cm Ao Asc: 3.10 2.1-3.4 cm Updated in Other Vendor System with Status of Final Can Monahan MD electronically signed on 05/02/2023 11:48:35 AM with status of Final
== END ==
LOC: HO.CARD 14:46
PROVIDERS: Visit Provider Internal Medicine Cardiovascular Disease
DX: I34.1 Nonrheumatic mitral (valve) prolapse (principal)
CPT/HCPCS: 93306; Q9957

== ENCOUNTER → 2023-05-01 14:51 | Outpatient (BNV) | payer OTHER, SELFPAY | PROVIDERS: Visit Provider Internal Medicine Cardiovascular Disease | DX: I34.1 Nonrheumatic mitral (valve) prolapse (principal) | CPT/HCPCS: 93306 ==

== ENCOUNTER 2023-08-12 07:17 | Day surgery (SDC) | payer OTHER, SELFPAY ==
[2023-08-12 07:20] VITALS: BMI 37.3
[2023-08-12 07:42] VITALS: BP 128/86; PULSE 79; RESP 16; TEMP 36.4; O2SAT 93
[2023-08-12] MEDS: Lactated Ringers 1,000 ML 80 ML IVCONT (07:45)
--- NOTE | 2023-08-12 08:08 | MHC.SHP ---
Pre-Procedural Eval Section A - 24 Hr Update-Section A only Date of Service: 08/12/23 The patient is an INPATIENT: No The patient has been examined within 24 hours of the surgical procedure. The History & Physical has been completed within 30 days and I have reviewed it.: No Section B - Complete if H&P > 30 days Chief Complaint: screening Relevant Family History (Specify if Yes): No Relevant Social History: Tobacco Use Present Medications: see Short Stay Collaborative assessment Medical History: Significant History (Thyroid condition MVP (mitral valve prolapse) Former cigarette smoker Alcohol abuse) History of Previous Operations: Relevant previous surgery/procedure and date(s) (H/O tooth extraction Hx of tubal ligation Hx of cholecystectomy Hx of kidney donation) Allergies: Allergies Allergy/AdvReac Type Severity Reaction Status Date / Time No Known Allergies Allergy Verified 08/12/23 07:25 Review of Systems Sugical H&P ROS: Negative: Constitution, Cardiovascular, Respiratory and Gastrointestinal Exam Surgical H&P Exam: Normal: Heart, Normal: Lungs, Normal: Extremities and Normal: Abdomen Plan Diagnosis/Plan: Unchanged I have reviewed the history and physical and performed a pertinent physical examination on my patient. No changes have occurred unless specified. Time Spent With Patient Time: Total time managing care of this patient today ____ minutes.
--- NOTE | 2023-08-12 08:28 | HO.ANESPROP2 ---
[facility] Active Problems Active Problems: All Active Problems Well woman exam (Acute) Bilateral knee pain (Acute) Elevated LDL cholesterol level (Acute) Transaminitis (Acute) MVP (mitral valve prolapse) (Acute) Vaccine counseling (Acute) Pap smear for cervical cancer screening (Acute) Breast cancer screening by mammogram (Acute) Colon cancer screening (Acute) Hypothyroidism (Acute) Normal physical examination, routine (Acute) Laboratory tests ordered as part of a complete physical exam (CPE) (Acute) Past Medical History Medical History H/O fracture of pelvis Thyroid condition MVP (mitral valve prolapse) Former cigarette smoker Alcohol abuse Family History Family History Other Adopted Family history of problems with anesthesia: No Surgical History Surgical History H/O tooth extraction Hx of tubal ligation Hx of cholecystectomy Hx of kidney donation History of Problems with Anesthesia: No Social History Social History Household Members: 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 Sexual orientation: Straight/Heterosexual Gender identity: Female Cognitive needs: No Hearing needs: No Vision needs: Yes (See's eye doctor) Meds Allergies Allergy/AdvReac Type Severity Reaction Status Date / Time No Known Allergies Allergy Verified 08/12/23 07:25 Active Medications: Current Medications Lactated Ringer's (Lr) 1,000 mls @ 80 mls/hr IVCONT .[id number] Last Admin: 08/12/23 07:45 Dose: 80 mls/hr Exam Height,Weight and Vital Signs: Height 5 ft 8 in Weight 111.244 kg Last Vital Signs Temp 97.6 F 08/12/23 07:42 Pulse 79 08/12/23 07:42 Resp 16 08/12/23 07:42 BP 128/86 08/12/23 07:42 Pulse Ox 93 08/12/23 07:42 O2 Del Method Room Air 08/12/23 07:42 Airway Mallampati Class: II TM Dist: >3cm Neck ROM: Full Denture: Upper and Lower Heart: rrr Lungs: cta Assessment and Plan Assessment Anesthesia Assessment: Anesthesia Plan Discussed and Chart Reviewed Final Anesthetic Review Family History of Problems with Anesthesia: No History of Problems with Anesthesia: No NPO: Yes ASA Class: II Final Preanesthetic Review: No Changes in Pt Med Stat, Meds/Allgs Chart Reviewed and Consent Obtained/Reviewed Patient Risk: Intermediate Procedure Risk: Intermediate Anesthetic Plan Anesthetic Plan: MAC: Disposition: Standard PACU
--- NOTE | 2023-08-12 08:29 | P.OP_ITS ---
Operative Note Operative Note Date of Service: 08/12/23 Narrative: COLONOSCOPY TILL CECUM Pre-op diagnosis: Colon cancer screening, Family hx not known. Post-op diagnosis:? Diverticulosis. Endoscopist:? Suraj Gaona MD Anesthesia:?MAC Consent: Indications for the procedure and potential complications of bleeding, perforation, reaction to medications and missed diagnosis were discussed with the patient and informed consent was obtained. Instrument: Olympus CF H 190 L variable stiffness adult colonoscope Monitoring: Vital signs and clinical assessment, intermittent blood pressure monitoring, continuous EKG monitoring, Pulse oximetry and Carbon Dioxide monitoring were done throughout the procedure. Please see anesthesia flowsheet. Colon withdrawl time was 12 minutes. Procedure: The patient was placed in the left lateral decubitis position and pre-procedure medications were administered. After a digital rectal examination of the ano-rectum, the video colonoscope was inserted into the rectum and advanced through the colon to the cecum. The colonoscope was slowly withdrawn in a retrograde panoramic fashion and the colon mucosa was carefully examined including a retroflexed view of the rectum. Findings and interventions are described below. Procedure Difficulty: without difficulty Findings: Terminal Ileum: Not evaluated Cecum: Normal Ascending Colon: Normal Transverse Colon: Normal Descending Colon: Normal Sigmoid Colon: Moderate diverticulosis Rectum: Normal Ano-rectum: Normal Colon preparation: Good after some irrigation. [place] Bowel Preparation Scale Right colon; 2 Transverse colon: 3 Left colon; 2 (0 = Unprepared colon segment with mucosa not seen due to solid stool that cannot be cleared. 1 = Portion of mucosa of the colon segment seen, but other areas of the colon segment not well seen due to staining, residual stool and/or opaque liquid. 2 = Minor amount of residual staining, small fragments of stool and/or opaque liquid, but mucosa of colon segment seen well. 3 = Entire mucosa of colon segment seen well with no residual staining, small fragments of stool or opaque liquid) Impression and Post Procedure Diagnosis: Colonoscopy Findings: No polyps were detected Moderate diverticulosis seen in the sigmoid colon Plan: Repeat Colonoscopy in 5 years since family hx is not knwon (pt is adopted). Above findings were reviewed with the patient and relevant handouts were given and the discharge area.
[2023-08-12 08:56] VITALS: BP 136/88; PULSE 82; RESP 16; TEMP 36.1; O2SAT 97
[2023-08-12 09:11] VITALS: BP 134/85; PULSE 79; RESP 18; TEMP 36.4; O2SAT 96
[2023-08-12 09:25] VITALS: BP 123/84; PULSE 75; RESP 18; TEMP 36.4; O2SAT 96
== END 2023-08-12 10:04 | disposition home or self-care (01) ==
PROVIDERS: PCP Nurse Practitioner Family; Visit Provider Internal Medicine Gastroenterology
PROC: 0DJD8ZZ Inspection of Lower Intestinal Tract, Via Natural or Artificial Opening Endoscopic (ICD-10-PCS; CPT 45378; principal; 2023-08-12 08:30)
DX: Z12.11 Encounter for screening for malignant neoplasm of colon (principal); K57.30 Diverticulosis of large intestine without perforation or abscess without bleeding; I34.1 Nonrheumatic mitral (valve) prolapse; E07.9 Disorder of thyroid, unspecified; F10.11 Alcohol abuse, in remission; Z98.51 Tubal ligation status; Z90.49 Acquired absence of other specified parts of digestive tract; Z87.891 Personal history of nicotine dependence
CPT/HCPCS: 45378; J2704

== ENCOUNTER → 2023-08-12 07:17 | Outpatient (BNV) | payer OTHER, SELFPAY | PROVIDERS: PCP Nurse Practitioner Family; Visit Provider Internal Medicine Gastroenterology | DX: Z12.11 Encounter for screening for malignant neoplasm of colon (principal); K57.30 Diverticulosis of large intestine without perforation or abscess without bleeding | CPT/HCPCS: 45378 ==

== ENCOUNTER 2023-12-03 06:34 | Outpatient (REF) | payer OTHER, SELFPAY ==
[2023-12-03 17:40] LABS: Free T4 (Free Thyroxine) 0.75 ng/dL (0.71-1.85)
== END 2023-12-03 06:35 | disposition home or self-care (01) ==
LOC: HO.HMGCLDS 06:34
PROVIDERS: PCP Nurse Practitioner Family; Visit Provider Nurse Practitioner Family
DX: E03.9 Hypothyroidism, unspecified (principal)
CPT/HCPCS: 36415; 84439; 84443

== ENCOUNTER 2023-12-03 15:58 | Outpatient (AMB) | payer OTHER, SELFPAY ==
--- NOTE | 2023-12-03 16:16 | MHC.PC.OV ---
Vital Signs 12/03/23 16:20 Height 5 ft 8.5 in Weight 244 lb 6 oz BMI 36.6 BP 120/76 Blood Pressure Location Lt brachial Position Sitting Respiration 16 Pulse 78 Pulse Source Pulse Oximeter Pulse Oximetry (%) 97 Oxygen Delivery Method Room Air Intake Visit Reasons: Liver follow up Intake Note: Follow up. Had labs done this morning, results in chart. Has been off the levothyroxine for 2-3 months. Storage Administrator Required: No Allergies No Known Allergies Allergy (Verified 12/03/23 16:25) Tobacco use date assessed: 12/13/22 Dental Screening Dental Screen Date: 01/23/23 HPI HPI Comments History of Present Illness Details 53-year-old female presents for hypothyroidism and transaminitis follow-up She notes that she ran out of levothyroxine refills the past 2-3 months She reports constant ringing in her ears for the past 2 weeks PFSH Medical History H/O fracture of pelvis Thyroid condition MVP (mitral valve prolapse) Former cigarette smoker Alcohol abuse Surgical History H/O tooth extraction Hx of tubal ligation Hx of cholecystectomy Hx of kidney donation Family History Other Adopted Social History Household Members: Spouse Housing: Condominium Patient Tobacco Use Status: Former Tobacco user Tobacco use type: Cigarette Years Smoked: 19 years e-Cigarette/Vaping Use: Never Used service: No Current occupational status: employed 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 Jax Castro, Yelena Estrada, Abdirahman Junior and colleagues, with an educational delphine from [employer]. Review of Systems Const Details: Const Denies chills, Denies fatigue, Denies fever(s), Denies headache(s) and Denies weakness ENT Reports as per HPI Card Denies chest pain, Denies lightheadedness, Denies dyspnea and Denies other (Palpitations) Resp Denies cough, Denies dyspnea, Denies wheezing and Denies other ( shortness of breath) GI Denies abdominal pain, Denies melena, Denies hematochezia, Denies change in bowel habits, Denies dyspepsia and Denies nausea Denies hematuria and Denies dysuria Musc Denies abnormal gait, Denies myalgias, Denies arthralgias, Denies numbness and Denies tingling Skin/Breast Denies rash, Denies unusual bruising and Denies wounds Neuro Denies abnormal gait, Denies dizziness, Denies headache(s), Denies memory loss, Denies numbness, Denies Sensory deficit (Neuro), Denies tingling and Denies weakness Psych Denies anxiety, Denies depression, Denies memory loss Endo Denies cold intolerance, Denies fatigue, Denies heat intolerance, Denies polydipsia and Denies polyuria Aller/Immun Denies wheezing Physical exam (Primary Care) Vital Signs: Last Vital Signs Pulse 78 12/03/23 16:20 Resp 16 12/03/23 16:20 BP 120/76 12/03/23 16:20 Pulse Ox 97 12/03/23 16:20 Oxygen Delivery Method Room Air 12/03/23 16:20 BMI result Body Mass Index 36.6 Tobacco/Smoking Status: Tobacco use Status Tobacco use date assessed 12/13/22 12/03/23 16:16 Patient Tobacco Use Status Former Tobacco user 12/03/23 16:16 Tobacco use type Cigarette 12/03/23 16:16 e-Cigarette/Vaping Use Never Used 12/03/23 16:16 Thrive Assessment: Date of Thrive Assessment Date Thrive assessed 12/13/22 12/03/23 16:16 Const Other: General: no acute distress and well developed Nutritional Appearance: well nourished Orientation/consciousness: patient oriented x3 HENMT Head is normocephalic Bilateral ear canal and TM are normal Nasal turbinates and oropharynx are pink and moist Sinuses are nontender with palpation No auricular or cervical lymphadenopathy Eyes General: appearance normal, both eyes and all related structures Pupils: Equal, round and reactive pupils present EOM: EOMs intact bilaterally Resp Effort & Inspection: normal respiratory effort Auscultation: clear to auscultation bilaterally Cardio Rate: regular rate Rhythm: regular rhythm Heart sounds: S1 normal heart sound present, S2 normal heart sound present, no gallops, no murmurs and no rubs GI Palpation (GI): No Abdominal aortic bruit present, Soft to palpation, nontender, No hepatosplenomegaly present and No Rebound tenderness present Auscultation: normal bowel sounds General: Yes no CVA tenderness Back/Spine/Pelvis Back: no CVA tenderness Cervical Spine: cervical ROM normal and No Cervical spine tenderness Thoracic/Lumbar Spine: thoraco-lumbar ROM normal, No pain with thoraco-lumbar ROM, No thoracic spinal tenderness and No lumbar spinal tenderness Extrem General: Yes normal to inspection, No edema and No calf tenderness Skin General: warm and dry. Normal skin color. Normal skin turgor Neuro General: patient oriented x3, gait normal and no focal neuro deficit Cranial nerves: Yes Equal, round and reactive pupils present Cognition (Neuro): normal cognition Gait exam (Neuro): Normal gait present Sensory Exam: No Sensory deficit (Neuro) Psych Appearance: grossly normal Affect: normal affect Attitude: cooperative Thought process: Normal thought process present Assessment and Plan Assessment & Plan (1) Hypothyroidism: Code(s): E03.9 - Hypothyroidism, unspecified Plan: TSH level today is elevated, 13.20, T4 was not ordered. I called and informed the lab to include free T4 to the patient blood work Will restart levothyroxine 75 mg daily. Advised to take as prescribed, with a full glass of water, in an empty stomach, 30 minute to an hour before taking other medications a meal Advised to get blood work done to 3 days before her next visit Follow-up in 6 weeks for an extended physical exam and hypothyroidism Return sooner with symptoms or concerns Verbalized understanding and agreed with the treatment plan (2) Hepatic steatosis: Code(s): K76.0 - Fatty (change of) liver, not elsewhere classified Plan: History of elevated liver enzymes Abdominal ultrasound on 02/2023 revealed hepatic steatosis Healthy diet and routine exercise encouraged (3) Tinnitus, bilateral: Code(s): H93.13 - Tinnitus, bilateral Plan: Constant tinnitus to both ears for the past 2 weeks Normal ear exam Will check vitamin B12 levels and make changes as needed. Will refer to ENT if symptoms persist or worsens Follow-up with worsening or new symptoms Verbalized understanding and agreed with the treatment plan Orders: Orders Complete Blood Count Auto Diff Today Z00.00 - Encounter for general adult medical examination without abnormal findings Lipid Panel Today Z00.00 - Encounter for general adult medical examination without abnormal findings Microalbumin, Random (w Creat) Today Z00.00 - Encounter for general adult medical examination without abnormal findings Comprehensive [place]. Panel Fast Today Z00.00 - Encounter for general adult medical examination without abnormal findings TSH reflex Free T4 Today Z00.00 - Encounter for general adult medical examination without abnormal findings UA CC w/rflx Micro + Cult Today Z00.00 - Encounter for general adult medical examination without abnormal findings Free T4 (Free Thyroxine) Today E03.9 - Hypothyroidism, unspecified Vitamin B12 and Folate Today H93.13 - Tinnitus, bilateral Medications: Changed From levothyroxine 75 mcg PO DAILY 90 days 90 tabs 0RF To levothyroxine 75 mcg PO DAILY 30 days 30 tabs 3RF Coding Level of Care Code New Pt Level 4 (25607) Complex EM visit Add On G2211 Diagnoses Hypothyroidism E03.9 Hepatic steatosis K76.0 Tinnitus, bilateral H93.13
[2023-12-03 16:20] VITALS: BP 120/76; PULSE 78; RESP 16; O2SAT 97; BMI 36.6
== END 2023-12-03 16:46 | disposition home or self-care (01) ==
PROVIDERS: PCP Nurse Practitioner Family; Visit Provider Nurse Practitioner Family
DX: E03.9 Hypothyroidism, unspecified (principal); K76.0 Fatty (change of) liver, not elsewhere classified; H93.13 Tinnitus, bilateral
CPT/HCPCS: 99214; G2211

== ENCOUNTER 2024-04-27 08:12 | Outpatient (REF) | payer OTHER, SELFPAY ==
[2024-04-27 10:25] LABS: Appearance Urine Cloudy; Color Urine Yellow; Glucose Urine UA Negative (Negative); Leukocyte Esterase Urine Large (3+) (Negative); Nitrite Urine Negative (Negative); Specific Gravity - Urine 1.025 (1.005-1.025); UMIC TRIGGER UACC YES; Urine Blood Trace (Negative); Urine Ketones Negative (Negative); Urine Protein Negative (Neg-Trace)
[2024-04-27 10:33] LABS: MANUAL DIFF FLAG NO
[2024-04-27 10:36] LABS: Basophils Percent Auto 0.6 % (0-2); Eosinophils Absolute Auto 0.2 X10*3/uL (0.0-0.4); Eosinophils Percent Auto 3.8 % (0-4); Hematocrit 41.3 % (37.0-47.0); Imm Gran Abs Auto 0.02 X10*3/uL (0.00-0.03); Imm Gran Pct Auto 0.4 % (0.0-0.4); Lymphocytes Absolute Auto 1.7 X10*3/uL (1.2-4.9); Lymphocytes Percent Auto 32.6 % (20-40); Mean Corpuscular HGB Conc 33.9 g/dl (31.0-35.0); Mean Corpuscular Volume 91.6 fL (80.0-98.0); Mean Platelet Volume 10.3 fL (9.4-12.3); Monocytes Absolute Auto 0.6 X10*3/uL (0.1-1.2); Monocytes Percent Auto 10.4 % (2-11); Neutrophils Absolute Auto 2.8 x10*3/uL (2.0-8.3); Neutrophils Percent Auto 52.2 % (45-73); Platelet Count 208 X10*3/uL (160-400); Red Blood Count 4.51 X10*6/uL (4.20-5.50); Red Cell Distribution Width 12.9 % (11.0-16.0); White Blood Count 5.3 X10*3/uL (4.8-10.8)
[2024-04-27 11:04] LABS: Bacteria Urine 4+ (None Seen); Hyaline Casts Urine 0-2 /LPF (0-2); Squamous Epithelial Cell Urine >20 /HPF (0-2); UACC Culture Trigger YES; WBC Urine >50 /HPF (0-5)
[2024-04-27 11:09] LABS: Alanine Aminotransferase 193 U/L (0-31); Albumin Level 3.9 g/dL (3.5-5.0); Alkaline Phosphatase 80 U/L (39-117); Anion Gap 10 (12-20); Aspartate Amino Transferase 110 U/L (5-31); Bilirubin Total 0.4 mg/dL (0.0-1.0); Blood Urea Nitrogen 11 mg/dL (9-16); Calcium 9.4 mg/dL (8.4-10.2); Carbon Dioxide 24 mmol/L (22-29); Chloride 110 mmol/L (96-108); Cholesterol 180 mg/dL (<200); Estimated Glomerular Filt Rate > 60; Glucose Fasting 113 mg/dL (60-99); HDL Cholesterol 57 mg/dL (>40); LDL Cholesterol Calculated 104 mg/dL (<100); Sodium 140 mmol/L (135-145); Total Protein 7.3 g/dL (6.5-8.0); Triglycerides 97 mg/dL (<150)
[2024-04-27 11:16] LABS: TSH reflex Free T4 4.08 uIU/mL (0.32-4.0)
[2024-04-27 11:25] LABS: Creatinine Urine 187.32 mg/dL; Microalbum/Creatinine Ratio Ur 5.8 ug/mg cr (<30)
[2024-04-27 11:34] LABS: Folate 6.2 ng/mL (> or = 4.0)
[2024-04-27 12:26] LABS: Vitamin B12 345 pg/mL (200-900)
[2024-04-27 13:22] LABS: Free T4 (Free Thyroxine) 1.07 ng/dL (0.71-1.85)
== END 2024-04-27 08:13 | disposition home or self-care (01) ==
LOC: HO.HMGCLDS 08:12
PROVIDERS: PCP Nurse Practitioner Family; Visit Provider Nurse Practitioner Family
DX: Z00.00 Encounter for general adult medical examination without abnormal findings (principal); H93.13 Tinnitus, bilateral
CPT/HCPCS: 36415; 80053; 80061; 81001; 82043; 82570; 82607; 82746; 84439; 84443; 85025; 87086

== ENCOUNTER 2024-04-28 12:25 | Outpatient (AMB) | payer OTHER, SELFPAY ==
--- NOTE | 2024-04-28 12:25 | MHC.PC.OV ---
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 Required: No Is last menstrual period known: Yes Last menstrual period: 01/21/24 Post menopausal: No Patient : No Allergies No Known Allergies Allergy (Verified 04/28/24 12:47) Medication List - Last Reconciled 04/28/24 by Rafael Anderson CNP levothyroxine 75 mcg PO DAILY 90 days Tobacco use date assessed: 04/28/24 Dental Screening Dental Screen Date: 04/28/24 Did you have a dental visit in the last 12 months?: Yes Did you have a dental problem in the last 6 months where you did not have access to dental care?: No Was dental information given to patient?: Patient has dentist HPI HPI Comments History of Present Illness Details 53-year-old female presents for an extended physical exam. She admits to taking levothyroxine as prescribed without adverse reactions. Acute issue(s) - Persistent tinnitus of both ears for the past few months. Past Medical History - Hypothyroidism, obesity, elevated LDL, mitral valve prolapse, right solitary kidney, myopia (wear prescription glasses), tinnitus of both ears, Social History - Former smoker, quit 20 years ago. Does not vape. Does not drink alcohol. Denies recreational drug use. - She noes not make healthy dietary choices. She does not exercise. Generally sleep well. Health maintenance - Last eye exam was about a year ago. Advise to get an updated eye exam and sign a release for her PCP to obtain record. - Last dental visit was over few months ago for full dental implant; history of poor dentition. - Last Tdap was in 08/2018. - She is up-to-date on the influenza vaccine. - She has not been vaccinated for shingles; encouraged to get vaccinated; she may request vaccine at a local pharmacy. - Last pap smear test was in 02/2023. - Last mammogram was in 12/2022. She has an appointment this week for a mammogram. - Last colonoscopy was in 07/2023. Specialists - [facility] [place] cardiology [facility] Medical History H/O fracture of pelvis Thyroid condition MVP (mitral valve prolapse) Former cigarette smoker Alcohol abuse Surgical History H/O tooth extraction Hx of tubal ligation Hx of cholecystectomy Hx of kidney donation Family History Other Adopted Social History Household Members: Spouse Housing: Condominium Patient Tobacco Use Status: Former Tobacco user Tobacco use type: Cigarette Years Smoked: 19 years e-Cigarette/Vaping Use: Never Used Second Hand Smoke Exposure: No service: No Current occupational status: employed 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 1. Little interest or pleasure in doing things: not at all 2. Feeling down, depressed, or hopeless: not at all 3. Trouble falling or staying asleep, or sleeping too much: not at all 4. Feeling tired or having little energy: not at all 5. Poor appetite or overeating: not at all 6. Feeling bad about yourself - or that you are a failure or have let yourself or your family down: not at all 7. Trouble concentrating on things, such as reading the newspaper or watching television: not at all 8. Moving or speaking so slowly that other people could have noticed. Or the opposite - being so fidgety or restless that you have been moving around a lot more than usual: not at all 9. Thoughts that you would be better off or of hurting yourself in some way: not at all Total score: 0 Depression Screening Interpretation: Negative Depression Screening Done: Yes 20140 - PHQ-9 Billing: Yes Source: Developed by Drs. Jax Castro, Yelena Estrada, Abdirahman Junior and colleagues, with an educational delphine from [employer]. Thrive Questionnaire Date Thrive assessed: 04/28/24 I am a: Patient What is your living situation today?: I have a steady place to live Within the past 12 months, did the food you bought not last and you didn't have the money to get more?: Never true Within the past 12 months, did you worry whether your food would run out before you got money to buy more?: Never true Do you have trouble paying for medicines?: No Do you have trouble getting transportation to medical appointments?: No Do you have trouble paying your heating and electricity bill?: No Do you have trouble taking care of your child, family member or friend?: No Do you have trouble with day-to-day activities such as bathing, preparing meals, shopping, managing finances, etc.?: No Are you currently unemployed and looking for a job?: No Are you interested in more education?: No Please select the resources that you would like help with: None Currently or been in a relationship where the following occur: I choose not to answer THRIVE Score: 0 AUDIT C Alcohol Use Questionnaire (AUDIT-C) 1. How often do you have a drink containing alcohol?: Never Total Score: 0 Score Reviewed/Action Taken: Yes CARLOS-7 AMB Questionnaire CARLOS-7 Date CARLOS - 7 assessed: 04/28/24 Feeling nervous, anxious, or on edge: 0 = Not at all Not being able to stop or control worryin = Not at all Worrying too much about different things: 0 = Not at all Trouble relaxin = Not at all Being so restless that it is hard to sit still: 0 = Not at all Becoming easily annoyed or irritable: 0 = Not at all Feeling afraid as if something awful might happen: 0 = Not at all Total CARLOS-7 score (0-4 normal; 5-9 mild; 10-14 moderate; 15-21 severe): 0 Source: Developed by Drs. Jax Castro, Yelena Estrada, Abdirahman Junior and colleagues, with an educational delphine from [employer]. CARLOS-7 Assessment Billing CARLOS-7 Assessment Tool: CARLOS-7 Assessment 25070 Review of Systems Const Details: Denies chills, Denies fatigue, Denies fever(s), Denies headache(s) and Denies weakness HEENT Reports ringing of both ears, Denies change in vision, Denies dizziness, Denies headache(s), Denies hearing loss, Denies nasal congestion, Denies sinus pain, Denies sinus pressure and Denies sore throat Card Denies chest pain, Denies lightheadedness, Denies dyspnea and Denies other (palpitations) Resp Denies cough, Denies dyspnea and Denies wheezing GI Denies abdominal pain, Denies melena, Denies hematochezia, Denies change in bowel habits, Denies dyspepsia and Denies nausea Denies hematuria and Denies dysuria Musc Denies abnormal gait, Denies myalgias, Denies arthralgias, Denies numbness and Denies tingling Skin/Breast Denies rash, Denies unusual bruising and Denies wounds Neuro Denies abnormal gait, Denies dizziness, Denies headache(s), Denies memory loss, Denies numbness, Denies Sensory deficit (Neuro), Denies tingling and Denies weakness Psych Denies anxiety, Denies depression and Denies memory loss Endo Denies cold intolerance, Denies fatigue, Denies heat intolerance, Denies polydipsia and Denies polyuria Chano/Lymph Denies easy bleeding and Denies easy bruising Aller/Immun Denies wheezing Physical exam (Primary Care) Vital Signs: Last Vital Signs Temp 98.1 F 04/28/24 12:30 Pulse 78 04/28/24 12:30 Resp 16 04/28/24 12:30 BP 133/73 04/28/24 12:30 Pulse Ox 96 04/28/24 12:30 Oxygen Delivery Method Room Air 04/28/24 12:30 BMI result Body Mass Index 36.9 Tobacco/Smoking Status: Tobacco use Status Tobacco use date assessed 04/28/24 04/28/24 12:33 Patient Tobacco Use Status Former Tobacco user 04/28/24 12:28 Tobacco use type Cigarette 04/28/24 12:28 e-Cigarette/Vaping Use Never Used 04/28/24 12:28 PHQ-9: PHQ-9 Score PHQ-9: Total score 0 04/28/24 12:28 Depression Screening Interpretation: Negative Thrive Assessment: Date of Thrive Assessment Date Thrive assessed 04/28/24 04/28/24 12:28 Currently or been in a relationship where the following occur: I choose not to answer Const Other: General: no acute distress, well developed, alert and awake Nutritional Appearance: well nourished Orientation/consciousness: patient oriented x3 [facility] Head: Yes normocephalic and Yes atraumatic Ears: hearing grossly normal bilaterally and TM's normal bilaterally General nose exam: Normal external nose present and Normal nares present Mouth: Normal oral and palatal mucosa present and moist mucous membranes Teeth and gingiva: dentition normal Throat: Yes oropharynx normal Eyes Pupils: Equal, round and reactive pupils present and Pupil accommodation reflex normal EOM: EOMs intact bilaterally Neck Neck: Yes normal visual inspection, Yes no lymphadenopathy and Yes trachea midline Thyroid: Thyroid normal Carotids: no bruits Lymphatic: no lymphadenopathy noted Chest Chest palpation & inspection: normal inspection of the chest Resp Effort & Inspection: normal respiratory effort Auscultation: clear to auscultation bilaterally Cardio Rate: regular rate Rhythm: regular rhythm Heart sounds: S1 normal heart sound present, S2 normal heart sound present, no gallops, no murmurs and no rubs Bruits: no abdominal aortic bruits and no carotid bruits GI Palpation (GI): No Abdominal aortic bruit present, Soft to palpation, nontender, No hepatosplenomegaly present and No Rebound tenderness present Auscultation: normal bowel sounds General: Yes no CVA tenderness Back/Spine/Pelvis Back: no CVA tenderness Cervical Spine: cervical ROM normal and No Cervical spine tenderness Thoracic/Lumbar Spine: thoraco-lumbar ROM normal, No pain with thoraco-lumbar ROM, No thoracic spinal tenderness and No lumbar spinal tenderness Skin General: warm and dry. Normal skin color. Normal skin turgor Lesions: no lesions Rashes: no rashes Trauma: no lacerations or abrasions Wounds: no wounds Nails: normal Neuro General: patient oriented x3, gait normal and CN's II-XI intact bilaterally Cranial nerves: Yes Equal, round and reactive pupils present Cognition (Neuro): normal cognition Gait exam (Neuro): Normal gait present Motor exam (neuro): 5/5 motor strength present throughout Sensory Exam: No Sensory deficit (Neuro) Deep tendon reflexes (DTR's): Right patellar reflex intensity grade: 2+ and Left patellar reflex intensity grade: 2+ Extrem General: Yes normal to inspection, No edema and No calf tenderness Psych Appearance: grossly normal Affect: normal affect Attitude: cooperative Thought process: Normal thought process present Coding Level of Care Code Est Pt Level 4 (02887) Est Pt Prev Care 40-64y(42728) Diagnoses Normal physical examination, routine Z00.00 Hypothyroidism E03.9 Hepatic steatosis K76.0 Elevated LDL cholesterol level E78.00 MVP (mitral valve prolapse) I34.1 Obesity (BMI 30-39.9) E66.9 Tinnitus, bilateral H93.13 Elevated fasting glucose R73.01 Additional Codes CARLOS-7 Assessment Billing - CARLOS-7 Assessment Tool: CARLOS-7 Assessment 20495 ([id number]) PHQ-9 - 08106 - PHQ-9 Billing: Yes ([id number]) Assessment & Plan Assessment & Plan (1) Normal physical examination, routine: Code(s): Z00.00 - Encounter for general adult medical examination without abnormal findings Category: Medical Plan: No significant functional limitations noted. (2) Hypothyroidism: Code(s): E03.9 - Hypothyroidism, unspecified Category: Medical Plan: Recent TSH level was is slightly elevated, 4.08; free T4 is normal. Continue current treatment regimen. Advised to perform TSH/T4 blood work before next visit. Verbalized understanding and agreed with the plan. (3) Hepatic steatosis: Code(s): K76.0 - Fatty (change of) liver, not elsewhere classified Category: Medical Plan: Recent AST and ALT levels a significantly elevated, 110 and 193 respectively; previous levels were 54 and 92 respectively. Healthy diet, including low fat, and routine exercise encouraged. Advised to fast for 10-12 hours, may drink water, and perform fasting lipid panel blood work a few days before her next visit. Verbalized understanding and agreed with the plan. (4) Elevated LDL cholesterol level: Code(s): E78.00 - Pure hypercholesterolemia, unspecified Category: Medical Plan: Recent LDL level is slightly elevated, 104. Advised to limit foods high in saturated fat and avoid foods high in trans fat. Routine exercise encouraged. Will monitor lipid panel levels periodically or if symptomatic. Verbalized understanding and agreed with the plan. (5) MVP (mitral valve prolapse): Code(s): I34.1 - Nonrheumatic mitral (valve) prolapse Category: Medical Plan: She has a history of mitral valve prolapse. Followed by [facility] [place] cardiology. (6) Obesity (BMI 30-39.9): Code(s): E66.9 - Obesity, unspecified Category: Medical Plan: She currently weighs 246 lb, BMI is 36.9. She has not been making healthy dietary choices or exercising. Healthy diet and routine exercise encouraged. Referred to [facility] [place] dietitian. Follow-up as needed. Verbalized understanding and agreed with plan. (7) Tinnitus, bilateral: Code(s): H93.13 - Tinnitus, bilateral Category: Medical Plan: She has been experiencing persistent tinnitus in both ears for the past few months. Normal ear exam bilaterally. Referred to ENT. (8) Elevated fasting glucose: Code(s): R73.01 - Impaired fasting glucose Category: Medical Plan: Recent fasting glucose is slightly elevated, 113. Will recheck fasting glucose and make changes as needed. Advised to get fasting glucose blood work done before next visit. Verbalized understanding and agreed with treatment plan. Orders: Orders TSH reflex Free T4 2 Months E03.9 - Hypothyroidism, unspecified Liver Panel 2 Months K76.0 - Fatty (change of) liver, not elsewhere classified Glucose Fasting Today R73.01 - Impaired fasting glucose Referrals Ear/Nose/Throat Referral H93.13 - Tinnitus, bilateral Nutrition/Dietitian Referral E66.9 - Obesity, unspecified
[2024-04-28 12:30] VITALS: BP 133/73; PULSE 78; RESP 16; TEMP 36.7; O2SAT 96; BMI 36.9
== END 2024-04-28 13:10 | disposition home or self-care (01) ==
PROVIDERS: PCP Nurse Practitioner Family; Visit Provider Nurse Practitioner Family
DX: Z00.00 Encounter for general adult medical examination without abnormal findings (principal); E03.9 Hypothyroidism, unspecified; Z68.36 Body mass index [BMI] 36.0-36.9, adult; E66.9 Obesity, unspecified; K76.0 Fatty (change of) liver, not elsewhere classified; E78.00 Pure hypercholesterolemia, unspecified; I34.1 Nonrheumatic mitral (valve) prolapse; H93.13 Tinnitus, bilateral; R73.01 Impaired fasting glucose

== ENCOUNTER → 2024-04-28 12:25 | Outpatient (BNVA) | payer OTHER, SELFPAY | PROVIDERS: PCP Nurse Practitioner Family; Visit Provider Nurse Practitioner Family | DX: Z00.00 Encounter for general adult medical examination without abnormal findings (principal); E03.9 Hypothyroidism, unspecified; K76.0 Fatty (change of) liver, not elsewhere classified; E78.00 Pure hypercholesterolemia, unspecified; I34.1 Nonrheumatic mitral (valve) prolapse; E66.9 Obesity, unspecified; Z68.36 Body mass index [BMI] 36.0-36.9, adult; H93.13 Tinnitus, bilateral; R73.01 Impaired fasting glucose | CPT/HCPCS: 96127 ==

== ENCOUNTER 2024-04-29 07:20 | Outpatient (AMB) | payer OTHER, SELFPAY ==
--- NOTE | 2024-04-29 07:31 | MHC.OFFVIS ---
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 No complaints. Last Pap/HPV was negative in 03/14 Last Mammogram was BI-RADS 1 in 01/12 Last Colonoscopy was done in 07/2023, the recommendation was to repeat in 5 years [facility] Medical History H/O fracture of pelvis Thyroid condition MVP (mitral valve prolapse) Former cigarette smoker Alcohol abuse Surgical History H/O tooth extraction Hx of tubal ligation Hx of cholecystectomy Hx of kidney donation Family History Other Adopted Social History Household Members: Spouse Housing: Condominium Patient Tobacco Use Status: Former Tobacco user Tobacco use type: Cigarette Years Smoked: 19 years e-Cigarette/Vaping Use: Never Used Second Hand Smoke Exposure: No service: No Current occupational status: employed 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 Sexual orientation: Straight/Heterosexual Gender identity: Female Cognitive needs: No Hearing needs: No Vision needs: Yes (See's eye doctor) Female Reproductive History Menstrual control method: permanent sterilization Menopause type: natural Date of last pap smear: 03/07/23 Date of Mammogram: 01/08/23 Review of Systems Const All systems reviewed & are unremarkable except as noted in HPI and below Card Reports as per HPI Resp Reports as per HPI GI Reports as per HPI and Reports no additional complaints Reports as per HPI Physical Exam Vital Signs: Last Vital Signs BP 122/84 04/29/24 07:32 BMI result Body Mass Index 36.9 Const General: cooperative, healthy appearing and comfortable Chest Chest palpation & inspection: normal inspection of the chest and normal palpation of entire chest wall Breast/axilla inspection: normal inspection of the breasts and normal inspection of the axillae Breast/axilla palpation: normal palpation of the breasts, normal palpation of the axillae and no axillary lymphadenopathy Resp Effort & Inspection: normal respiratory effort Auscultation: clear to auscultation bilaterally Percussion: percussion normal Cardio Palpation: normal PMI Rate: regular rate Rhythm: regular rhythm Heart sounds: no murmurs and no rubs Peripheral pulses: Peripheral pulses 2+ throughout GI Inspection: Yes normal to inspection Palpation (GI): Soft to palpation, nontender, no guarding, not rigid and No hepatosplenomegaly present Percussion: Yes normal to percussion Auscultation: normal bowel sounds Rectal Exam - Female: deferred General: Yes bladder normal to palpation External Female Exam: No lesion Speculum Exam - Vagina: normal appearance of the vagina, normal palpation, normal vaginal discharge and not erythematous Speculum Exam - Cervix: normal appearance of the cervix and normal palpation Bimanual exam- vagina & uterus: normal bimanual exam, normal palpation, uterine size normal, bladder normal to palpation, consistency normal and normal palpation Bimanual Exam- Adnexa, other: normal adnexae, no masses and no tenderness Assessment & Plan Assessment & Plan (1) Well woman exam: Code(s): Z01.419 - Encounter for gynecological examination (general) (routine) without abnormal findings Category: Medical Plan: Co testing not indicated this. Counseled the patient about the recommended dietary allowance of 1200 mg of Calcium & 600 IU of vitamin D. Mammogram ordered. The patient was instructed to perform monthly self-breast exams and schedule annual exam in a year. All questions answered and the patient verbalized understanding. Orders: Orders MM tomosynthesis screening BI Today Z12.31 - Encounter for screening mammogram for malignant neoplasm of breast Coding Level of Care Code Est Pt Prev Care 40-64y(76727) Diagnoses Well woman exam Z01.419
[2024-04-29 07:32] VITALS: BP 122/84; BMI 36.9
== END 2024-04-29 08:01 | disposition home or self-care (01) ==
LOC: HO.HWS 07:20
PROVIDERS: PCP Nurse Practitioner Family; Visit Provider Obstetrics & Gynecology
DX: Z01.419 Encounter for gynecological examination (general) (routine) without abnormal findings (principal)
CPT/HCPCS: 99396; 99459

== ENCOUNTER → 2024-04-29 07:20 | Outpatient (BNVA) | payer OTHER, SELFPAY | PROVIDERS: PCP Nurse Practitioner Family; Visit Provider Obstetrics & Gynecology ==

== ENCOUNTER → 2024-05-11 08:45 | Outpatient (BNV) | payer OTHER, SELFPAY | PROVIDERS: PCP Nurse Practitioner Family; Visit Provider Internal Medicine | DX: Z12.31 Encounter for screening mammogram for malignant neoplasm of breast (principal) | CPT/HCPCS: 77063; 77067 ==

== ENCOUNTER 2024-05-11 08:49 | Outpatient (REF) | payer OTHER, SELFPAY | END 2024-05-11 08:50 | disposition home or self-care (01) | LOC: HO.MAMMO 08:49 | PROVIDERS: PCP Nurse Practitioner Family; Visit Provider Obstetrics & Gynecology | DX: Z12.31 Encounter for screening mammogram for malignant neoplasm of breast (principal) | CPT/HCPCS: 77063; 77067 ==

== ENCOUNTER → 2024-05-27 09:29 | Outpatient (BNVA) | payer OTHER, SELFPAY | PROVIDERS: PCP Nurse Practitioner Family; Visit Provider Dietitian, Registered | DX: E66.9 Obesity, unspecified (principal); Z71.3 Dietary counseling and surveillance; Z68.36 Body mass index [BMI] 36.0-36.9, adult | CPT/HCPCS: 97802 ==

== ENCOUNTER 2024-07-08 07:56 | Outpatient (REF) | payer OTHER, SELFPAY ==
[2024-07-08 10:57] LABS: Alanine Aminotransferase 167 U/L (0-31); Albumin Level 3.9 g/dL (3.5-5.0); Alkaline Phosphatase 87 U/L (39-117); Aspartate Amino Transferase 90 U/L (5-31); Bilirubin Direct 0.1 mg/dL (0.0-0.5); Bilirubin Total 0.4 mg/dL (0.0-1.0); Total Protein 7.5 g/dL (6.5-8.0)
[2024-07-08 11:13] LABS: TSH reflex Free T4 4.73 uIU/mL (0.32-4.0)
== END 2024-07-08 07:57 | disposition home or self-care (01) ==
LOC: HO.HMGCLDS 07:56
PROVIDERS: PCP Nurse Practitioner Family; Visit Provider Nurse Practitioner Family
DX: K76.0 Fatty (change of) liver, not elsewhere classified (principal); E03.9 Hypothyroidism, unspecified
CPT/HCPCS: 36415; 80076; 84439; 84443

== ENCOUNTER 2024-07-09 09:27 | Outpatient (AMB) | payer OTHER, SELFPAY ==
[2024-07-09 09:37] VITALS: BMI 37.0
--- NOTE | 2024-07-09 09:37 | A.OFFVIS_ITS ---
VS Expanded 07/09/24 09:37 Height 5 ft 8.5 in Weight 246 lb 14.684 oz BMI 37.0 Intake Visit Reasons: Obesity, unspecified/ Allergies No Known Allergies Allergy (Verified 07/10/24 14:53) Nutrition Presentation Details: Pt presents for MNT f/u for obesity Pt reports gradually making dietary modifications working on reducing on lactose containing foods d/t bloating sensation reports noticing swollen feet this am , has pending appt tomorrow with PCP BS Monitoring Most Recent Diabetes Results: AST 90 U/L (5-31) H 07/08/24 ALT 167 U/L (0-31) H 07/08/24 Total Protein 7.5 g/dL (6.5-8.0) 07/08/24 Albumin 3.9 g/dL (3.5-5.0) 07/08/24 PFSH Medical History H/O fracture of pelvis Thyroid condition MVP (mitral valve prolapse) Former cigarette smoker Alcohol abuse Surgical History H/O tooth extraction Hx of tubal ligation Hx of cholecystectomy Hx of kidney donation Family History Other Adopted Social History Household Members: Spouse Housing: Condominium Patient Tobacco Use Status: Former Tobacco user Tobacco use type: Cigarette Years Smoked: 19 years e-Cigarette/Vaping Use: Never Used Second Hand Smoke Exposure: No Patient : No service: No Current occupational status: employed 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 Sexual orientation: Straight/Heterosexual Gender identity: Female Cognitive needs: No Hearing needs: No Vision needs: Yes (See's eye doctor) Assessment & Plan Assessment & Plan (1) Obesity (BMI 30-39.9): Code(s): E66.9 - Obesity, unspecified Category: Medical Plan: Wt: 110 Kg ( 06/16 ), 112 kg (07/14) Est kcal needs as per MSJ: 2100 (40% carb, 30% protein/fat) Est fluid needs as per 25-30 ml/d: 3300 Est prot per day as per 1 g/kg bw: 110 Recommend fiber intake : 8-10 g per day and gradually increase to 25-28 g per day for women and 35-38 g for men or as tolerated Recommend sodium intake per day : l less than 2300 mg Educated patient on: ( R = reviewed V = verbalizes understanding N/R = needs review N/A = not applicable * Food sources of carbohydrate, adequate serving sizes and its role in various health conditions: R * Differences between complex carbohydrates a simple carbohydrates, role of fiber in diet: R * Lean protein sources of foods: R V NR * Differences between types of fats and role in diet (mono on saturated fat fatty acids, saturated fatty acids, trans fats): R * Food sources of sodium in salt and healthy modifications for heart health in kidney health: R V R/V * Vitamins and minerals: R V N/R * Healthy plate method concept: R V N/R * Physical activity: Benefits a precaution: R V N/R * Hypoglycemia protocol (rule of 15): R V N/R * Dietary prevention of Hyperglycemia: R Patient Instructions: Continue to gradually work on choosing naturally gluten free foods (vegetables :starchy/non starchy veg, fruits, lean protein foods Keep hydrated by choosing water, herb/fruit flavor water practice mindful eating Coding Level of Care Code Nutr Indiv Subseq (64715) Diagnoses Obesity (BMI 30-39.9) E66.9 Time Spent (min) 25
== END 2024-07-09 09:57 | disposition home or self-care (01) ==
LOC: HO.ENCR 09:27
PROVIDERS: PCP Nurse Practitioner Family; Visit Provider Dietitian, Registered
DX: E66.9 Obesity, unspecified (principal)

== ENCOUNTER → 2024-07-09 09:27 | Outpatient (BNVA) | payer OTHER, SELFPAY | PROVIDERS: PCP Nurse Practitioner Family; Visit Provider Dietitian, Registered | DX: E66.9 Obesity, unspecified (principal); Z71.3 Dietary counseling and surveillance; Z68.37 Body mass index [BMI] 37.0-37.9, adult | CPT/HCPCS: 97803 ==

== ENCOUNTER 2024-07-10 15:01 | Outpatient (AMB) | payer OTHER, SELFPAY ==
--- NOTE | 2024-07-10 14:52 | A.OFFPC_ITS ---
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 She notes that she has been taking levothyroxine as prescribed without adverse reactions. No acute symptoms at this time. 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 Jax Castro, Yelena Estrada, Abdirahman Junior and colleagues, with an educational delphine from [email or web address]. Review of Systems Const Details: Denies chills, Denies fatigue, Denies fever(s), Denies headache(s) and Denies weakness Cardiac Denies chest pain, Denies claudication, Denies leg edema, Denies lightheadedne ss, Denies palpitations, Denies dyspnea, Denies dyspnea on exertion, Denies orthopnea and Denies other (Loss of consciousness) Resp Denies cough, Denies excessive phlegm production, Denies dyspnea, Denies dyspnea on exertion, Denies snoring and Denies wheezing Physical exam (Primary Care) Tobacco/Smoking Status: Tobacco use Status Tobacco use date assessed 07/10/24 07/10/24 14:54 Patient Tobacco Use Status Former Tobacco user 07/10/24 14:54 Tobacco use type Cigarette 07/10/24 14:54 e-Cigarette/Vaping Use Never Used 07/10/24 14:54 Thrive Assessment: Date of Thrive Assessment Date Thrive assessed 04/28/24 07/10/24 14:54 Const Other: Patient is alert and oriented x3. Telehealth Telehealth Telehealth Platform: Telephone Location of provider rendering services: practice address Location of patient: address on file Patient Identification confirmed using: Name, : Yes Telehealth method: voice only Patient verbally consented to treatment: Yes Patient verbally consented to billing insurance company: Yes Patient informed of any privacy concerns related to visit: Yes Coding Level of Care Code Tele Est Pt Level 3 (30142) Diagnoses Hypothyroidism E03.9 Hepatic steatosis K76.0 Elevated fasting glucose R73.01 Time Spent (min) 15 Assessment & Plan Assessment & Plan (1) Hypothyroidism: Code(s): E03.9 - Hypothyroidism, unspecified Category: Medical Plan: Recent TSH level is slightly elevated, 4.73, free T4 is normal. Will increase levothyroxine to 88 mcg daily; advised to take as prescribed. Recheck TSH/free T4 before next visit. Follow-up for telehealth visit in 6 weeks or sooner with symptoms or concerns. Verbalized understanding and agreed with treatment plan. (2) Hepatic steatosis: Code(s): K76.0 - Fatty (change of) liver, not elsewhere classified Category: Medical Plan: Recent AST and ALT levels are elevated but improving, 90 and 167 respectively. Previous AST and ALT levels were 110 and 193 respectively. Advised to limit foods high in saturated fat and avoid foods high in trans fat. Routine exercise encouraged. Will recheck liver panel levels in 3 months. Verbalized understanding and agreed with the treatment plan. (3) Elevated fasting glucose: Code(s): R73.01 - Impaired fasting glucose Category: Medical Plan: Repeat fasting glucose lab was not done. Advised to get fasting glucose blood work before her next visit. Verbalized understanding and agreed with the plan. Medications: New levothyroxine 88 mcg PO DAILY 90 days 90 tabs 1RF Discontinued levothyroxine Discontinued Reason: Doctor's Order 75 mcg PO DAILY 90 days 90 tabs 0RF
== END 2024-07-10 15:44 | disposition home or self-care (01) ==
LOC: HO.HMCFM 15:01
PROVIDERS: PCP Nurse Practitioner Family; Visit Provider Nurse Practitioner Family
DX: E03.9 Hypothyroidism, unspecified (principal); K76.0 Fatty (change of) liver, not elsewhere classified; R73.01 Impaired fasting glucose

== ENCOUNTER → 2024-07-10 15:01 | Outpatient (BNVA) | payer OTHER, SELFPAY | PROVIDERS: PCP Nurse Practitioner Family; Visit Provider Nurse Practitioner Family ==

== ENCOUNTER 2024-09-19 10:04 | Outpatient (REF) | payer OTHER, SELFPAY ==
[2024-09-19 12:35] LABS: Glucose Fasting 98 mg/dL (60-99)
[2024-09-19 12:53] LABS: TSH reflex Free T4 1.95 uIU/mL (0.32-4.0)
== END 2024-09-19 10:05 | disposition home or self-care (01) ==
LOC: HO.HMGCLDS 10:04
PROVIDERS: PCP Nurse Practitioner Family; Visit Provider Nurse Practitioner Family
DX: R73.01 Impaired fasting glucose (principal); E03.9 Hypothyroidism, unspecified
CPT/HCPCS: 36415; 82947; 84443

== ENCOUNTER 2024-10-08 08:29 | Outpatient (AMB) | payer OTHER, SELFPAY ==
[2024-10-08 08:37] VITALS: BMI 37.0
--- NOTE | 2024-10-08 08:37 | A.OFFVIS_ITS ---
VS Expanded 10/08/24 08:37 Height 5 ft 8 in Weight 243 lb 6.245 oz BMI 37.0 Intake Visit Reasons: Obesity, unspecified/ Allergies No Known Allergies Allergy (Verified 07/10/24 14:53) Nutrition Presentation Details: Pt presents for MNT f/u for obesity. Pt c/o ongoing GI symptoms, bloating sensation. Pt reports working on choosing lactose free food choices and also tried naturally gluten free foods,reports developing diarrhea after consuming gluten. Pt reports having had recent work schedule/travels changes, now working closer to home which makes it easier for meal prep/diet modifications Physical activity: 14 hr work schedule, ADL, has access to pool and is contemplating engaging in additional PA BS Monitoring Most Recent Diabetes Results: AST, (5-31) 90 U/L H 07/08/24 ALT, (0-31) 167 U/L H 07/08/24 Total Protein, (6.5-8.0) 7.5 g/dL 07/08/24 Albumin, (3.5-5.0) 3.9 g/dL 07/08/24 PFSH Medical History H/O fracture of pelvis Thyroid condition MVP (mitral valve prolapse) Former cigarette smoker Alcohol abuse Surgical History H/O tooth extraction Hx of tubal ligation Hx of cholecystectomy Hx of kidney donation Family History Other Adopted Social History Household Members: Spouse Housing: Condominium Patient Tobacco Use Status: Former Tobacco user Tobacco use type: Cigarette Years Smoked: 19 years e-Cigarette/Vaping Use: Never Used Second Hand Smoke Exposure: No service: No Current occupational status: employed 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 Sexual orientation: Straight/Heterosexual Gender identity: Female Cognitive needs: No Hearing needs: No Vision needs: Yes (See's eye doctor) Assessment & Plan Assessment & Plan (1) Obesity (BMI 30-39.9): Code(s): E66.9 - Obesity, unspecified Category: Medical Plan: Wt: 110 Kg ( 06/16 ), 112 kg (07/14), 100kg (10/14) Est kcal needs as per MSJ: 2100 -500 (40% carb, 30% protein/fat) Est fluid needs as per 25-30 ml/d: 3300 Est prot per day as per 1 g/kg bw: 110 Recommend fiber intake : 8-10 g per day and gradually increase to 25-28 g per day for women and 35-38 g for men or as tolerated Recommend sodium intake per day : l less than 2300 mg Educated patient on: ( R = reviewed V = verbalizes understanding N/R = needs review N/A = not applicable * Food sources of carbohydrate, adequate serving sizes and its role in various health conditions: R * Differences between complex carbohydrates a simple carbohydrates, role of fiber in diet: R * Lean protein sources of foods: R * Differences between types of fats and role in diet (mono on saturated fat fatty acids, saturated fatty acids, trans fats): R * Food sources of sodium in salt and healthy modifications for heart health in kidney health: R * Vitamins and minerals: R V N/R * Healthy plate method concept: R V N/R * Physical activity: Benefits a precaution: R V N/R * Hypoglycemia protocol (rule of 15): R V N/R * Dietary prevention of Hyperglycemia: R * Low Fodmap diet - reviewed concepts related to GI symptoms Patient Instructions: Make a routine of having a fruit as your bedtime routine , continuing to work on replacing higher calorie/fat options Engage in physical activity at least 30 minutes 3 times a week Continue working on choosing naturally GF foods Consider taking a daily MVI Coding Level of Care Code Nutr Indiv Subseq (39762) Diagnoses Obesity (BMI 30-39.9) E66.9 Time Spent (min) 30
== END 2024-10-08 09:05 | disposition home or self-care (01) ==
PROVIDERS: PCP Nurse Practitioner Family; Visit Provider Dietitian, Registered
DX: E66.9 Obesity, unspecified (principal)

== ENCOUNTER → 2024-10-08 08:29 | Outpatient (BNVA) | payer OTHER, SELFPAY | PROVIDERS: PCP Nurse Practitioner Family; Visit Provider Dietitian, Registered | DX: E66.9 Obesity, unspecified (principal); Z68.37 Body mass index [BMI] 37.0-37.9, adult | CPT/HCPCS: 97803 ==